=== PATIENT | male | born 1955 | race Caucasian/White ===

== ENCOUNTER 2018-09-06 00:24 | Emergency (ER) | payer BC, MEDICARE, SELFPAY ==
[2018-09-06] MEDS ORDERED: Lisinopril 20 MG TAB PO SCH (01:15)
[2018-09-06] MEDS ORDERED: cloNIDine 0.1 MG TAB ONE (01:21)
== END 2018-09-06 01:24 ==
LOC: ERS 00:24
DX: I10 Essential (primary) hypertension (principal); E11.9 Type 2 diabetes mellitus without complications
CPT/HCPCS: 99283

== ENCOUNTER 2018-09-09 15:39 | Inpatient (IN) | payer OTHER, SELFPAY ==
[2018-09-09 16:06] LABS: #Basophils 0.1 thou/uL (0.0-0.2); #Eosinphils 0.2 thou/uL (0.0-0.7); #Lymphocytes 2.6 thou/uL (1.20-3.40); #Monocytes 1.1 thou/uL (0.11-0.59); #Neutrophils 5.4 thou/uL (1.40-6.50); %Basophils 1.1 % (0.0-1.0); %Eosinophils 1.8 % (0.0-10.0); %Lymphocytes 27.8 % (21.0-51.0); %Monocytes 11.8 % (0.0-10.0); %Neutrophils 57.5 % (42.0-75.0); Hemoglobin 17.5 g/dL (14.0-18.0); Mean Corpuscular HGB CONC 33.1 g/dL (32.0-36.0); Mean Corpuscular Hemoglobin 29.5 pg (27.0-31.0); Mean Corpuscular Volume 89.2 fL (78.0-98.0); Mean Platelet Volume 8.1 fL (7.4-10.4); Platelet Count 341 thou/uL (130-400); RBC Distribution Width 12.6 % (11.5-14.5); Red Blood Cell (RBC) Count 5.92 mill/uL (4.70-6.10); White Blood Cell (WBC) Count 9.3 thou/uL (4.8-10.8)
[2018-09-09] MEDS ORDERED: niCARdipine 20MG In NaCl 20 MG/200 ML BAG ONE (16:08)
[2018-09-09 16:27] LABS: ALT (SGPT) 51 U/L (8-55); AST (SGOT) 42 U/L (5-34); Albumin 4.6 g/dL (3.4-4.8); Alkaline Phosphatase 95 U/L (40-150); Anion Gap 18 mmol/L (10-20); BUN (Urea Nitrogen) 21 mg/dL (8.4-25.7); Bilirubin, Total 0.7 mg/dL (0.2-1.2); Calc. Creatinine Clearance 0 mL/min (70-130); Carbon Dioxide 25 mmol/L (23-31); Chloride 104 mmol/L (98-107); Estimated GFR-MDRD 67; Globulin 3.1 g/dL (2.4-3.5); Glucose 111 mg/dL (80-115); Protein, Total 7.7 g/dL (5.8-8.1); Sodium 142 mmol/L (136-145)
--- NOTE | 2018-09-09 18:15 | CT ---
CT BRAIN WITHOUT CONTRAST: 09/09/18 HISTORY: Headache. Severe hypertension. FINDINGS: No evidence of infarct, hemorrhage, midline shift, or abnormal extra-axial fluid collections are seen . The ventricular size is normal and the basilar cisterns patent. The bony calvarium is intact. There is mild mucosa disease in the paranasal sinuses. The mastoid air cells are clear. IMPRESSION: No CT evidence of acute intracranial process. POS: [facility]
--- NOTE | 2018-09-09 18:19 | RAD ---
PORTABLE CHEST ONE VIEW: 09/09/18 at 5 p.m. HISTORY: Headache. FINDINGS: No recent exams for comparison. The heart size is borderline. The lungs are expanded without lobar consolidation, pneumothoraces, fra nk pulmonary edema or pleural effusions. The aorta is tortuous. IMPRESSION: No acute process. POS: [facility]
[2018-09-09] MEDS ORDERED: niCARdipine HCl 25 MG in Sodium Chloride 0.9% 250 ML 240 ML IVPB PRN (19:00)
[2018-09-09] MEDS ORDERED: Ondansetron PF 4 MG/2 ML Vial IVP PRN (19:01)
[2018-09-09] MEDS ORDERED: Senokot S 8.6-50 MG TAB PO PRN (19:01)
[2018-09-09] MEDS ORDERED: Guaifenesin DM 100-10/5 ML UDCUP PO PRN (19:01)
[2018-09-09] MEDS ORDERED: Ondansetron ODT 4 MG TAB PO PRN (19:01)
[2018-09-09] MEDS ORDERED: Acetaminophen 650 MG Suppository PR PRN (19:01)
[2018-09-09] MEDS ORDERED: niCARdipine 40MG In NaCl 40 MG/200 ML BAG IVPB SCH (19:01)
[2018-09-09] MEDS ORDERED: Dextrose 50% Abboject 50 ML SYRINGE SLOW IVP PRN (19:05)
[2018-09-09] MEDS ORDERED: HumaLOG 300 UNITS/3 ML VIAL SC PRN ×2 (19:05)
[2018-09-09] MEDS ORDERED: Dextrose 5% in Water 1,000 ML IV PRN (19:05)
[2018-09-09] MEDS: niCARdipine HCl 50 MG in Sodium Chloride 0.9% 250 ML 230 ML IVPB SCH (19:39)
[2018-09-09] MEDS: Famotidine 20 MG TAB PO SCH (21:46)
[2018-09-09] MEDS: Acetaminophen 325 MG TAB PO PRN (23:03)
[2018-09-10 01:04] LABS: CKMB 2.2 ng/mL (0-6.6)
--- NOTE | 2018-09-10 01:52 | HP ---
PRIMARY CARE PHYSICIAN: Malick Rose, currently a resident of the [facility]. CHIEF COMPLAINT: Headache and dizziness. HISTORY OF PRESENT ILLNESS: This is a 63-year-old white male with a known history of severe hypertension, also with possible history of pheochromocytoma and carcinoid syndrome diagnosed back in more than 10 years ago per patient's report at the clinic around [place], but treated only with antihypertensives. He reports that he has chronic pain in his stomach from this, but has not changed for years, but also has had difficult to control blood pressure. He was put in nursing home in the last couple of weeks and ran out of blood pressure medicines. He was seen in the emergency room here 3 days ago, given a dose of clonidine, but I do not see he received any prescriptions at that time. The patient was historically on some carvedilol, uncertain what medicines he has been given in the nursing home since then, though he reports that he thinks he has had some lisinopril. The patient reports some severe pressure in his head, some intermittent headaches and elevated blood pressure, so he was brought into the ER today. In the ER, his blood pressure was found to be systolic 283 along with a bradycardic pulse in the 40s initially. He was given a Cardene drip. His initial EKG did show a complete heart block with a heart rate in the mid to high 40s, but asymptomatic at rest. This did convert to a sinus bradycardia, currently in the 50s with intermittent PVCs and some runs of complete heart block as well. PAST MEDICAL HISTORY: 1. Severe hypertension. 2. Questionable history of carcinoid and pheochromocytoma. 3. History of prostate cancer without any specific treatment. 4. Diabetes, not currently on any medications. PAST SURGICAL HISTORY: 1. Left ankle surgery. 2. Septoplasty. 3. Tonsillectomy. PAST PSYCHIATRIC HISTORY: Negative per patient, accompanying officer says he does have some psychiatric diagnosis, though he does know what they are and that he was previously followed at [facility]. SOCIAL HISTORY: No current tobacco, alcohol, or illicit drug use. ALLERGIES: AMLODIPINE. CURRENT MEDICATIONS: Per the ER note, he was on carvedilol, uncertain dose and lisinopril, uncertain dose. REVIEW OF SYSTEMS: CONSTITUTIONAL: No fevers. No chills. EYES: No double vision or blurred vision. ENT: He has had some runny nose. No sore throat. CARDIOVASCULAR: No chest pain. No palpitations or racing heart. He did have the feeling like he was going to pass out initially on presentation that has resolved. PULMONARY: No coughing, wheezing, or shortness of breath. GASTROINTESTINAL: Chronic periumbilical abdominal pain at baseline. No nausea or vomiting. He does have alternating diarrhea and constipation, though none today. GENITOURINARY: No dysuria or hematuria. MUSCULOSKELETAL: No muscle aches or joint pains. SKIN: No rashes or lesions noted. NEUROLOGIC: No numbness, tingling, or focal weakness. PHYSICAL EXAMINATION: VITAL SIGNS: Blood pressure 153/73, pulse 51, respirations 17, O2 saturation 99 % on room air, temperature 99.2. GENERAL: This is a well developed, obese white male, in no acute distress. HEENT: Pupils equal, round, and reactive to light. Oropharynx clear without lesions, erythema, or exudate. NECK: Supple. No lymphadenopathy. No thyroid nodules or enlargement. HEART: Bradycardic rhythm. No murmurs, rubs, or gallops. LUNGS: Clear to auscultation bilaterally. No wheezes, crackles, or rhonchi. ABDOMEN: Soft, obese, nontender to palpation. Normoactive bowel sounds. No hepatosplenomegaly or other masses. EXTREMITIES: No clubbing, cyanosis, or edema. SKIN: No rashes or other lesions noted. NEUROLOGIC: The patient is able to move all extremities with equal strength and equal reflexes. No facial droop. PSYCHIATRIC: Alert and oriented x3. Normal mood and affect. LABORATORY DATA: CBC within normal limits. Complete metabolic panel is notable only for an AST of 42. The rest was normal. Troponin was negative x1. IMAGING DATA: Chest x-ray; I did review the chest x-ray done in the emergency room along with the radiologist's report. No marked cardiomegaly. No severe congestive changes. No infiltrates. He has some mildly increased pulmonary artery size, though borderline. No acute cardiopulmonary process. CT of the head showed no evidence of acute intracranial process. EKG; I did review the EKG done in the emergency room done initially on presentation, does show a complete heart block with an escape ventricular rhythm at about 49 beats per minute. On reviewing the monitor, right now the patient is in sinus bradycardia with short MA interval. No significant ST changes noted. ASSESSMENT: 1. Hypertensive emergency. Improved with Cardene. We will continue Cardene drip. Put the patient in the ICU. 2. Complete heart block, now resolved. Transcutaneous pacer pads placed in case he needs any sort of pacing. I have also discussed the case with Dr. Grove. He recommended since the patient's blood pressure is actually elevated and the patient is not symptomatic right now that no specific interventions need to be done for this previous heart block, but did recommend given his history of carvedilol use, to try some atropine if his vital signs should decompensate. Otherwise, to call us after morning for the consultation. 3. Questionable history of pheochromocytoma. This might warrant investigation of previous records, though not urgent at this point and likely to be done as an outpatient once controlled his blood pressure. 4. Long-standing hypertension. We will check an echocardiogram. 5. Deep venous thrombosis prophylaxis. We will put the patient on Lovenox. 6. Gastrointestinal prophylaxis. We will put the patient on Pepcid twice a day. 7. Code status. The patient is a full code. 8. Diabetes Mellitus Type 2. Will give low insulin sliding scale and finger- stick blood sugars qAC and . Job ID: [id number] [facility]
[2018-09-10] MEDS: niCARdipine HCl 50 MG in Sodium Chloride 0.9% 250 ML 230 ML IVPB SCH (03:47)
[2018-09-10 04:45] LABS: #Basophils 0.1 thou/uL (0.0-0.2); #Eosinphils 0.3 thou/uL (0.0-0.7); #Lymphocytes 1.9 thou/uL (1.20-3.40); #Monocytes 0.8 thou/uL (0.11-0.59); #Neutrophils 5.5 thou/uL (1.40-6.50); %Basophils 0.7 % (0.0-1.0); %Lymphocytes 22.3 % (21.0-51.0); %Monocytes 9.7 % (0.0-10.0); %Neutrophils 64.2 % (42.0-75.0); Hemoglobin 16.6 g/dL (14.0-18.0); Mean Corpuscular HGB CONC 33.7 g/dL (32.0-36.0); Mean Corpuscular Volume 88.9 fL (78.0-98.0); Mean Platelet Volume 8.4 fL (7.4-10.4); Platelet Count 303 thou/uL (130-400); RBC Distribution Width 12.3 % (11.5-14.5); Red Blood Cell (RBC) Count 5.54 mill/uL (4.70-6.10); White Blood Cell (WBC) Count 8.6 thou/uL (4.8-10.8)
[2018-09-10 05:08] LABS: Anion Gap 14 mmol/L (10-20); BUN (Urea Nitrogen) 21 mg/dL (8.4-25.7); Calc. Creatinine Clearance 0 mL/min (70-130); Calcium 9.3 mg/dL (7.8-10.44); Carbon Dioxide 26 mmol/L (23-31); Chloride 105 mmol/L (98-107); Estimated GFR-MDRD 74; Glucose 117 mg/dL (80-115); Potassium 3.5 mmol/L (3.5-5.1); Sodium 141 mmol/L (136-145)
[2018-09-10] MEDS: Enoxaparin Sodium 40 MG/0.4 ML SYRINGE SC SCH (07:40)
[2018-09-10] MEDS: Famotidine 20 MG TAB PO SCH ×2 (07:40→20:29)
--- NOTE | 2018-09-10 09:12 | CON ---
DATE OF CONSULTATION: 09/10/2018 SERVICE: Pulmonary Medicine. REASON FOR CONSULTATION: ICU patient. HISTORY OF PRESENT ILLNESS: The patient is a 63-year-old white male with past medical history significant for severe hypertension. There is a questionable history of pheochromocytoma and carcinoid syndrome. Either way, these were medically managed through time. He got incarcerated here recently and ultimately was away from some of his blood pressure medications. He started having some chest discomfort, shortness of breath, and pressure of the head. He was brought to the Emergency Department and was discovered to have severely elevated blood pressures. He was placed on a Cardene drip and tucked into the ICU. Overnight, the patient 's blood pressures have been fantastic. He indicates that all of his symptoms have resolved. He denies any current chest pain, headache, nausea, vomiting, or diarrhea. His appetite is good. He was not having any fevers, chills, cough, sputum production, dysuria, or abdominal discomfort. They brought him to the hospital. PAST MEDICAL HISTORY: 1. Hypertension. 2. Pheochromocytoma versus carcinoid versus both, history of. 3. Prostate cancer. 4. Type 2 diabetes mellitus. PAST SURGICAL HISTORY: 1. Left ankle surgery. 2. Septoplasty. 3. Tonsillectomy. SOCIAL HISTORY: Negative for alcohol, tobacco, or illicit drug use currently. FAMILY HISTORY: Noncontributory. ALLERGIES: AMLODIPINE. MEDICATIONS: List of the patient's inpatient medications were reviewed. Multiple updates were made and I have restarted some of his home blood pressure medications. REVIEW OF SYSTEMS: General; head, ears, eyes, nose, and throat; cardiovascular; respiratory; GI; ; musculoskeletal; neurologic; and skin are negative except as mentioned in the HPI. PHYSICAL EXAMINATION: VITAL SIGNS: Afebrile, pulse 45, blood pressure 134/64, respirations 24, and saturation 93% on room air. GENERAL: The patient is awake and alert, in no apparent distress. LUNGS: Excellent air entry without any prolonged expiratory phase or wheezing. HEART: Normal rate, regular. ABDOMEN: Soft, nontender, and nondistended. Bowel sounds are positive. MUSCULOSKELETAL: No cyanosis or clubbing. No pitting in bilateral lower extremities. NEUROLOGIC: Grossly nonfocal. LABORATORY DATA: CBC is unremarkable. Basic metabolic profile is unremarkable with a creatinine that is downtrending to 1.02. Liver function studies are normal. Troponin is gently up-trending to 0.071. IMAGING DATA: 1. CT of the brain demonstrates no acute intracranial abnormality. 2. Chest x-ray demonstrates no acute cardiopulmonary abnormality. ASSESSMENT: 1. Hypertensive emergency, resolved. 2. Elevated troponin secondary to demand. 3. Questionable history of pheochromocytoma and/or carcinoid. DISCUSSION AND PLAN: We will resume some of his home blood pressure medications as we understand them. Cardene drip has been turned off. He can be transitioned to the telemetry unit. We will provide him with p.r.n. hydralazine if needed. Secondary workup for these for pheochromocytoma and/or carcinoid may be indicated once again. This can be followed up in the outpatient setting. 70 minutes have been devoted to this patient in various activities. I personally reviewed all imaging studies and laboratory data noted within this document. For fifty percent of this time, I was interacting with the patient at the bedside or coordinating care with the care team. For the remainder of the time I was immediately available to the patient in the hospital unit. Job ID: [id number] [facility]TDD
[2018-09-10] MEDS: Doxazosin 2 MG TAB PO SCH (11:28)
[2018-09-10] MEDS: Lisinopril/Hydrochlorothiazide 20/25 mg Tablet PO SCH (11:29)
[2018-09-10] MEDS: hydrALAZINE 20 MG/ML VIAL SLOW IVP PRN ×2 (12:28→20:30)
--- NOTE | 2018-09-10 15:56 | CON ---
DATE OF CONSULTATION: HISTORY OF PRESENT ILLNESS: The patient is a 63-year-old gentleman, who presented for evaluation of severe headaches and with a markedly elevated blood pressure and headaches. The patient has a history of pheochromocytoma. The patient has been on cardiac medications for his blood pressure. He presented to the emergency room with severe headaches. He does have a known left bundle branch block. The patient was noted in the emergency room to have intermittent heart block. The patient does report having episodes of syncope. PAST MEDICAL HISTORY: 1. Pheochromocytoma. 2. Hypertension. 3. Prostate carcinoma. 4. Diabetes mellitus. PAST SURGICAL HISTORY: Ankle surgery and tonsillectomy. SOCIAL HISTORY: Nonsmoker. ALLERGIES: AMLODIPINE CAUSES SWELLING, MEDICATIONS: He takes; 1. Coreg 3.125 b.i.d. 2. Prinzide 20/12.5 daily. REVIEW OF SYSTEMS: Ten-point system otherwise unremarkable. PHYSICAL EXAMINATION: GENERAL: This is a well-developed gentleman, in no acute distress with a blood pressure of 146/87. NECK: No jugular venous distention. LUNGS: Clear to auscultation. HEART: Regular rate and rhythm. Normal S1 and S2. ABDOMEN: Distended. EXTREMITIES: Showed trace edema. VASCULAR: Radial pulse 2+. LABORATORY DATA: Sodium 141, potassium 3.5, chloride 105, bicarb 26, BUN 21, creatinine 1.0, and glucose 117. Troponin 0.071. His EKG revealed him to have a left bundle branch block with AV dissociation. IMPRESSION: 1. Hypertensive crisis. 2. AV dissociation. 3. History of syncope. 4. Diabetes mellitus. 5. History of prostate carcinoma. PLAN: This gentleman presents with hypertensive crisis. The patient has AV dissociation with his history of pheochromocytoma. He may be imperative that he will be able to be maintained on beta-carl therapy. From a cardiac standpoint, he will need an electronic pacemaker. We will continue to follow this patient with you through his hospitalization. We will check his echocardiogram. This is a critical care note and the time on this critical care note is 30 minutes. Job ID: [id number] [facility]TDD
--- NOTE | 2018-09-10 17:48 | PDOC.PN ---
- Subjective Encounter Start Date: 09/10/18 Encounter Start Time: 09:40 Pt seen for followup re: hypertensive urgency. Says he feels better. - Objective Resuscitation Status - Order Detail: 09/09/18 18:44 Resuscitation Status Routine Resuscitation Status: FULL: Full Resuscitation Discussed with: Patient ASTRID Reviewed: Yes Vital Signs & Weight: Vital Signs (12 hours) Temp 09/10/18 15:55 98.2 F 09/10/18 11:32 98.2 F 09/10/18 08:00 98.1 F Weight Weight 4.282 oz Most Recent Monitor Data Heart Rate from ECG 61 NIBP 217/71 NIBP BP-Mean 119 Respiration from ECG 27 SpO2 94 I&O: 09/09/18 09/10/18 09/11/18 06:59 06:59 06:59 Intake Total 751 1200 Output Total 1450 1050 Balance -699 150 Result Diagrams: 09/10/18 04:03 09/10/18 04:03 EKG Reviewed by me: Yes (Tele:NSR) Phys Exam - Physical Examination Obese HEENT: moist MMs Neck: supple Respiratory: clear to auscultation bilateral Cardiovascular: RRR Gastrointestinal: soft Neurological: moves all 4 limbs Psychiatric: normal affect Dx/Plan (1) Hypertensive urgency Code(s): I16.0 - HYPERTENSIVE URGENCY Status: Acute Comment: Improved, off of cardene drip (2) Atrioventricular (AV) dissociation Code(s): I45.89 - OTHER SPECIFIED CONDUCTION DISORDERS Status: Acute Comment : appreciate cardiology service input - Plan * . Review of Systems - Review of Systems Respiratory: negative: Cough, Shortness of Breath, SOB with Excertion, Pleuritic Pain, Sputum Cardiovascular: negative: chest pain, palpitations, orthopnea, paroxysmal nocturnal dyspnea, edema, light headedness - Medications/Allergies Allergies/Adverse Reactions: Allergies Allergy/AdvReac Type Severity Reaction Status Date / Time amlodipine [From [facility]] Allergy Verified 09/06/18 01:09 Medications: Current Medications Acetaminophen (Tylenol) 650 mg PO Q4H PRN PRN Reason: Headache/Fever/Mild Pain (1-3) Last Admin: 09/09/18 23:03 Dose: 650 mg Acetaminophen (Tylenol) 650 mg OK Q4H PRN PRN Reason: Headache/Fever/Mild Pain (1-3) Dextrose/Water (Dextrose 50%) 25 gm SLOW IVP PRN PRN PRN Reason: Hypoglycemia Doxazosin Mesylate (Cardura) 2 mg PO DAILY [facility] Last Admin: 09/10/18 11:28 Dose: Not Given Enoxaparin Sodium (Lovenox) 40 mg SC 0900 [facility] Last Admin: 09/10/18 07:40 Dose: 40 mg Famotidine (Pepcid) 20 mg PO BID [facility] Last Admin: 09/10/18 07:40 Dose: 20 mg Glucagon (Glucagon) 1 mg IM PRN PRN PRN Reason: Hypoglycemia Lisinopril/HCTZ (Prinizide 20-25) 1 tab PO DAILY [facility] Last Admin: 09/10/18 11:29 Dose: 1 tab Hydralazine HCl (Apresoline) 20 mg SLOW IVP Q1H PRN PRN Reason: SBP Greater Than 180 Last Admin: 09/10/18 12:28 Dose: 20 mg Dextrose/Water (D5w) 1,000 mls @ 0 mls/hr IV .Q0M PRN PRN Reason: Hypoglycemia Insulin Human Lispro (Humalog) 0 units SC .MILD SLIDING SCALE PRN PRN Reason: Mild Correctional Scale Insulin Human Lispro (Humalog) 0 units SC .BEDTIME SLIDING SC PRN PRN Reason: Bedtime Correctional Scale Ondansetron HCl (Zofran Odt) 4 mg PO Q6H PRN PRN Reason: Nausea/Vomiting Ondansetron HCl (Zofran) 4 mg IVP Q6H PRN PRN Reason: Nausea/Vomiting Senna/Docusate Sodium (Senokot S) 2 tab PO BIDPRN PRN PRN Reason: Constipation
[2018-09-11] MEDS: hydrALAZINE 20 MG/ML VIAL SLOW IVP PRN ×4 (04:13→21:29)
[2018-09-11] MEDS ORDERED: Carvedilol 3.125 MG TAB PO SCH (09:15)
[2018-09-11] MEDS: Famotidine 20 MG TAB PO SCH ×2 (09:39→21:29)
[2018-09-11] MEDS: Enoxaparin Sodium 40 MG/0.4 ML SYRINGE SC SCH (09:41)
[2018-09-11] MEDS: Doxazosin 2 MG TAB PO SCH (09:55)
--- NOTE | 2018-09-11 10:03 | PRG ---
DATE OF SERVICE: 09/11/2018 SERVICE: Pulmonary Medicine. INTERVAL HISTORY: The patient is doing fine from respiratory standpoint. Whenever his blood pressure goes up, he has a little bit of dizziness. Outside of that, he has no fevers, chills, cough, chest pain, shortness of breath, nausea, or vomiting overnight. He has been able to get up around the room. PHYSICAL EXAMINATION: VITAL SIGNS: Afebrile, pulse 50, blood pressure 170/92, respirations 15, and saturation 96% on room air. GENERAL: The patient is awake and alert, in no apparent distress. LUNGS: Excellent air entry with no prolonged expiratory phase or wheezing. HEART: Normal rate. Regular. ABDOMEN: Soft, nontender, and nondistended. Bowel sounds are positive. MUSCULOSKELETAL: No cyanosis or clubbing. No pitting in the bilateral lower extremities. NEUROLOGIC: Grossly nonfocal. IMAGING: Echocardiogram demonstrates normal ejection fraction and mildly dilated left atrium. Left ventricular size is increased. There is diastolic dysfunction present. ASSESSMENT: 1. Hypertensive emergency, resolved. 2. Chronic diastolic heart failure. 3. Elevated troponin secondary to demand. 4. Questionable history of pheochromocytoma and/or carcinoid. DISCUSSION AND PLAN: The patient remains stable for transition out of the ICU to the telemetry unit. When he arrives on the floor, Pulmonary/Critical Care will sign off. We will continue to escalate his p.o. medications through time. If he remains in this location, we will continue to follow. Job ID: [id number]
[2018-09-11] MEDS: Lisinopril/Hydrochlorothiazide 20/25 mg Tablet PO SCH (10:52)
[2018-09-11] MEDS ORDERED: Lisinopril/Hydrochlorothiazide 20/25 mg Tablet PO SCH (12:00)
--- NOTE | 2018-09-11 15:03 | PDOC.PN ---
- Subjective Encounter Start Date: 09/11/18 Encounter Start Time: 10:00 Pt seen for followup re:hypertensive urgency. says he feels better. - Objective Resuscitation Status - Order Detail: 09/09/18 18:44 Resuscitation Status Routine Resuscitation Status: FULL: Full Resuscitation Discussed with: Patient Vital Signs & Weight: Vital Signs (12 hours) BP Pulse Ox 09/11/18 12:17 166/95 H 09/11/18 10:52 154/74 H 09/11/18 07:44 98 09/11/18 04:13 191/68 H Weight Weight 4.282 oz Most Recent Monitor Data Heart Rate from ECG 49 NIBP 166/95 NIBP BP-Mean 118 Respiration from ECG 17 SpO2 95 I&O: 09/10/18 09/11/18 09/12/18 06:59 06:59 06:59 Intake Total 751 1600 480 Output Total 1450 2000 600 Balance -699 -400 -120 Result Diagrams: 09/10/18 04:03 09/10/18 04:03 Additional Labs: Accuchecks 09/11/18 09/10/18 09/09/18 10:58 11:41 20:30 POC Glucose 116 H 111 H 191 H Phys Exam - Physical Examination HEENT: moist MMs Neck: supple Respiratory: clear to auscultation bilateral Cardiovascular: RRR Gastrointestinal: soft Neurological: moves all 4 limbs Psychiatric: normal affect Dx/Plan (1) Hypertensive urgency Code(s): I16.0 - HYPERTENSIVE URGENCY Status: Acute Comment: Improved, off of cardene drip since yesterday, likely transfer to floor (2) Atrioventricular (AV) dissociation Code(s): I45.89 - OTHER SPECIFIED CONDUCTION DISORDERS Status: Acute Comment : cardiology following - Plan * . Review of Systems - Review of Systems Cardiovascular: negative: chest pain, palpitations, orthopnea, paroxysmal nocturnal dyspnea, edema, light headedness Gastrointestinal: negative: Nausea, Vomiting, Abdominal Pain, Diarrhea, Constipation, Melena, Hematochezia - Medications/Allergies Allergies/Adverse Reactions: Allergies Allergy/AdvReac Type Severity Reaction Status Date / Time amlodipine [From [facility]] Allergy Verified 09/06/18 01:09 Medications: Current Medications Acetaminophen (Tylenol) 650 mg PO Q4H PRN PRN Reason: Headache/Fever/Mild Pain (1-3) Last Admin: 09/09/18 23:03 Dose: 650 mg Acetaminophen (Tylenol) 650 mg AR Q4H PRN PRN Reason: Headache/Fever/Mild Pain (1-3) Dextrose/Water (Dextrose 50%) 25 gm SLOW IVP PRN PRN PRN Reason: Hypoglycemia Enoxaparin Sodium (Lovenox) 40 mg SC 0900 [facility] Last Admin: 09/11/18 09:41 Dose: 40 mg Famotidine (Pepcid) 20 mg PO BID [facility] Last Admin: 09/11/18 09:39 Dose: 20 mg Glucagon (Glucagon) 1 mg IM PRN PRN PRN Reason: Hypoglycemia Lisinopril/HCTZ (Prinizide 20-25) 2 tab PO DAILY [facility] Hydralazine HCl (Apresoline) 20 mg SLOW IVP Q1H PRN PRN Reason: SBP Greater Than 180 Last Admin: 09/11/18 04:13 Dose: 20 mg Dextrose/Water (D5w) 1,000 mls @ 0 mls/hr IV .Q0M PRN PRN Reason: Hypoglycemia Insulin Human Lispro (Humalog) 0 units SC .MILD SLIDING SCALE PRN PRN Reason: Mild Correctional Scale Insulin Human Lispro (Humalog) 0 units SC .BEDTIME SLIDING SC PRN PRN Reason: Bedtime Correctional Scale Ondansetron HCl (Zofran Odt) 4 mg PO Q6H PRN PRN Reason: Nausea/Vomiting Ondansetron HCl (Zofran) 4 mg IVP Q6H PRN PRN Reason: Nausea/Vomiting Senna/Docusate Sodium (Senokot S) 2 tab PO BIDPRN PRN PRN Reason: Constipation
[2018-09-11] MEDS: Acetaminophen 325 MG TAB PO PRN ×2 (16:07→21:28)
[2018-09-11] MEDS ORDERED: Carvedilol 6.25 MG TAB PO SCH (17:00)
[2018-09-12] MEDS ORDERED: Sodium Chloride 0.9% 10 ML ONE (08:18)
[2018-09-12] MEDS: Enoxaparin Sodium 40 MG/0.4 ML SYRINGE SC SCH (08:32)
[2018-09-12] MEDS: Lisinopril/Hydrochlorothiazide 20/25 mg Tablet PO SCH (08:32)
[2018-09-12] MEDS: Famotidine 20 MG TAB PO SCH ×2 (08:32→21:10)
[2018-09-12] MEDS: hydrALAZINE 20 MG/ML VIAL SLOW IVP PRN (12:29)
--- NOTE | 2018-09-12 16:34 | PDOC.PN ---
- Subjective Encounter Start Date: 09/12/18 Encounter Start Time: 08:20 Pt seen for followup re: hypertensive urgency. No complaints today. - Objective Resuscitation Status - Order Detail: 09/09/18 18:44 Resuscitation Status Routine Resuscitation Status: FULL: Full Resuscitation Discussed with: Izzy RESENDIZ Reviewed: Yes Vital Signs & Weight: Vital Signs (12 hours) Temp Pulse Resp BP Pulse Ox 09/12/18 16:09 98.2 F 56 L 18 111/55 L 96 09/12/18 13:25 146/60 H 09/12/18 12:29 49 L 09/12/18 12:15 98.1 F 49 L 18 184/72 H 97 09/12/18 08:32 50 L 09/12/18 08:27 98.5 F 50 L 18 167/87 H 98 Weight Weight 4.282 oz Most Recent Monitor Data Heart Rate from ECG 47 NIBP 153/82 NIBP BP-Mean 105 Respiration from ECG 7 SpO2 96 I&O: 09/11/18 09/12/18 09/13/18 06:59 06:59 06:59 Intake Total 1600 880 Output Total 2000 900 Balance -400 -20 Result Diagrams: 09/10/18 04:03 09/10/18 04:03 EKG Reviewed by me: Yes (Tele: 3rd degree AV block) Phys Exam - Physical Examination Constitutional: NAD HEENT: moist MMs Neck: supple Respiratory: clear to auscultation bilateral Cardiovascular: RRR Gastrointestinal: soft Neurological: moves all 4 limbs Psychiatric: normal affect Dx/Plan (1) Hypertensive urgency Code(s): I16.0 - HYPERTENSIVE URGENCY Status: Acute Comment: Improved, on tele floor now (2) Atrioventricular (AV) dissociation Code(s): I45.89 - OTHER SPECIFIED CONDUCTION DISORDERS Status: Acute Comment : pt deciding re: pacemaker - Plan * . Review of Systems - Review of Systems Respiratory: negative: Cough, Shortness of Breath, SOB with Excertion, Pleuritic Pain, Wheezing Cardiovascular: negative: chest pain, palpitations, orthopnea, paroxysmal nocturnal dyspnea, edema, light headedness - Medications/Allergies Allergies/Adverse Reactions: Allergies Allergy/AdvReac Type Severity Reaction Status Date / Time amlodipine [From [facility]] Allergy Verified 09/06/18 01:09 Medications: Current Medications Acetaminophen (Tylenol) 650 mg PO Q4H PRN PRN Reason: Headache/Fever/Mild Pain (1-3) Last Admin: 09/11/18 21:28 Dose: 650 mg Acetaminophen (Tylenol) 650 mg HI Q4H PRN PRN Reason: Headache/Fever/Mild Pain (1-3) Dextrose/Water (Dextrose 50%) 25 gm SLOW IVP PRN PRN PRN Reason: Hypoglycemia Enoxaparin Sodium (Lovenox) 40 mg SC 0900 [facility] Last Admin: 09/12/18 08:32 Dose: 40 mg Famotidine (Pepcid) 20 mg PO BID [facility] Last Admin: 09/12/18 08:32 Dose: 20 mg Glucagon (Glucagon) 1 mg IM PRN PRN PRN Reason: Hypoglycemia Lisinopril/HCTZ (Prinizide 20-25) 2 tab PO DAILY [facility] Last Admin: 09/12/18 08:32 Dose: 2 tab Hydralazine HCl (Apresoline) 20 mg SLOW IVP Q1H PRN PRN Reason: SBP Greater Than 180 Last Admin: 09/12/18 12:29 Dose: 20 mg Dextrose/Water (D5w) 1,000 mls @ 0 mls/hr IV .Q0M PRN PRN Reason: Hypoglycemia Insulin Human Lispro (Humalog) 0 units SC .MILD SLIDING SCALE PRN PRN Reason: Mild Correctional Scale Insulin Human Lispro (Humalog) 0 units SC .BEDTIME SLIDING SC PRN PRN Reason: Bedtime Correctional Scale Ondansetron HCl (Zofran Odt) 4 mg PO Q6H PRN PRN Reason: Nausea/Vomiting Ondansetron HCl (Zofran) 4 mg IVP Q6H PRN PRN Reason: Nausea/Vomiting Senna/Docusate Sodium (Senokot S) 2 tab PO BIDPRN PRN PRN Reason: Constipation
[2018-09-12] MEDS: Acetaminophen 325 MG TAB PO PRN (21:10)
--- NOTE | 2018-09-12 22:10 | CON ---
DATE OF CONSULTATION: 09/12/2018 PROBLEM LIST: I am seeing Mr. 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 His problems are; 1. Persisting third-degree AV block with symptomatic bradycardia. 2. Remote history of pheochromocytoma, on medical management. 3. Preserved LVEF by echocardiogram on 09/10/2018 with 50% to 55% diastolic dysfunction, mild MR and TR, and mildly dilated left atrium. 4. Hypertensive crisis. 5. Incarcerated state. 6. History of diabetes. 7. History of prostate cancer, not on therapy. ALLERGIES: AMLODIPINE. MEDICATIONS: At home included; 1. Tylenol. 2. Dextrose water. 3. Lovenox. 4. Pepcid. 5. Glucagon. 6. Prinzide. 7. Alprazolam. 8. Zofran. 9. Senokot. SUBJECTIVE: Mr. Tinoco is here due to elevated blood pressure, he is a transfer from custodial. It was accompanied with headaches also occasional dizziness and he has significant marked fatigue for a number of months. He denies any passing-out spells. Denies angina. Denies PND, orthopnea, or lower extremity edema. No fever, chills, or cough. REVIEW OF SYSTEMS: Rest of 12-point review of systems is otherwise unremarkable. PAST MEDICAL HISTORY: As above. He has been remotely diagnosed with possible pheochromocytoma. SOCIAL HISTORY: The patient is a nonsmoker. Again, currently incarcerated. FAMILY HISTORY: Not contributory. The patient denies smoking, EtOH, or drug abuse. OBJECTIVE DATA: VITAL SIGNS: Blood pressure is 146/60, heart rate 49, respirations 18, temperature 98.1 degrees Fahrenheit. GENERAL: He is an alert and oriented man, in no apparent distress. NECK: Supple. Jugular veins not distended. CHEST: Coarse without crackles. CARDIAC: Heart sounds are regular to rate and rhythm. No murmur or gallop. ABDOMEN: Benign. Bowel sounds are positive. EXTREMITIES: Lower extremities without edema, clubbing, or cyanosis. DATA BASE: EKG is reviewed revealing sinus rhythm with complete AV block with ventricular escape rhythm in the 40s to 50s. LABORATORY DATA: White count is 8.6, hemoglobin is 16.6, platelet count is 303. Sodium 141, potassium 3.5, BUN is 21, creatinine 1.02. Troponin levels 0.018 and 0.071. The chest x-ray so far reveals no acute process. ASSESSMENT AND PLAN: Mr. Tinoco is a pleasant 63-year-old man with history of possible pheochromocytoma versus carcinoid or both remotely, on medical management only. He has had history of hypertension and was admitted with hypertensive crisis, also noted to be bradycardic with junctional escape rhythm and third-degree atrioventricular block. He has symptoms of bradycardia for a number of months now. He does not pass out, though. We discussed the significance of his findings. He understands the potential risk of worsening bradycardia and cardiovascular collapse as well. I detailed the utility of pacemaker in this condition. Clearly, he may require further beta-carl therapy, has history of pheochromocytoma, which is difficult to administer in the setting of complete atrioventricular block. The pros and cons again were discussed, but at this point, he laments about holding off on any kind of pacing therapy. We will discuss this with Dr. Grove. We will keep him without food tomorrow depending on discussions. History of pheochromocytoma as per Dr. Grove and discussed hypertension management as well. Thank you again for allowing me to participate in the care of this patient. Job ID: [id number]
[2018-09-13] MEDS: hydrALAZINE 20 MG/ML VIAL SLOW IVP PRN ×4 (00:44→23:22)
[2018-09-13] MEDS: Enoxaparin Sodium 40 MG/0.4 ML SYRINGE SC SCH (08:45)
[2018-09-13] MEDS: Lisinopril/Hydrochlorothiazide 20/25 mg Tablet PO SCH (08:45)
[2018-09-13] MEDS: Famotidine 20 MG TAB PO SCH ×2 (08:46→21:03)
[2018-09-13] MEDS ORDERED: hydrALAZINE 25 MG TAB PO PRN (15:26)
--- NOTE | 2018-09-13 16:15 | PDOC.CTH ---
Cardiology Progress Note - Subjective EP PROGRESS NOTE: 09/13/18 follow up for 3rd deg. AVB. recommended permanent pacemaker yesterday. patient continue to refuse this today. He is without cardiac complaints today. - Objective Vital Signs Temp Pulse Resp BP BP Pulse Ox 09/13/18 13:10 65 18 130/58 L 09/13/18 12:06 51 L 206/88 H 09/13/18 11:57 98 F 51 L 18 206/88 H 99 09/13/18 09:25 137/81 09/13/18 08:45 48 L 202/93 H 09/13/18 08:35 99 09/13/18 08:33 98 F 48 L 16 202/93 H 99 Weight 4.282 oz 09/12/18 09/13/18 09/14/18 06:59 06:59 06:59 Intake Total 880 970 Output Total 900 600 Balance -20 370 - Physical Examination General/Neuro: alert & oriented x3, NAD Neck: carotid US brisk, no JVD present Lungs: CTA, unlabored respirations Heart: PMI normal, other: (3rd degree AVB 45-55 BPM) Abdomen: NT/ND, soft - Telemetry Telemetry Rhythm: 3rd degree AVB 45-55 BPM - Labs Result Diagrams: 09/10/18 04:03 09/10/18 04:03 Troponin/CKMB CK-MB (CK-2) 2.2 ng/mL (0-6.6) 09/10/18 00:02 Troponin I 0.071 ng/mL (< 0.028) H 09/10/18 00:02 - Assessment/Plan 1. 3rd degree AV block - mildly symptomatic, BP stable 2. HTN 3. Preserved LVEF EP recommendation continues to be for implant of permanent pacemaker to correct his advanced AV block with correlating symptoms. He continues to refuse. Recommend caution/avoidance of BB or AV node blocking agents with his current rhythm. He understands the potential risks associated with further bradycardia without a PM in place. EP signing off. OK for DC by EP
--- NOTE | 2018-09-13 19:13 | PDOC.PN ---
- Subjective Encounter Start Date: 09/13/18 Encounter Start Time: 14:00 Pt seen for followup re: AV dissociation. Denies chest pain or shortness of breath. - Objective Resuscitation Status - Order Detail: 09/09/18 18:44 Resuscitation Status Routine Resuscitation Status: FULL: Full Resuscitation Discussed with: Patient ASTRID Reviewed: Yes Vital Signs & Weight: Vital Signs (12 hours) Temp Pulse Resp BP BP Pulse Ox 09/13/18 17:14 152/65 H 09/13/18 16:29 185/86 H 09/13/18 16:23 98 F 49 L 18 185/86 H 98 09/13/18 13:10 65 18 130/58 L 09/13/18 12:06 51 L 206/88 H 09/13/18 11:57 98 F 51 L 18 206/88 H 99 09/13/18 09:25 137/81 09/13/18 08:45 48 L 202/93 H 09/13/18 08:35 99 09/13/18 08:33 98 F 48 L 16 202/93 H 99 Weight Weight 4.282 oz Most Recent Monitor Data Heart Rate from ECG 47 NIBP 153/82 NIBP BP-Mean 105 Respiration from ECG 7 SpO2 96 I&O: 09/12/18 09/13/18 09/14/18 06:59 06:59 06:59 Intake Total 183 998 2554 Output Total 900 600 Balance -20 370 1440 Result Diagrams: 09/10/18 04:03 09/10/18 04:03 Additional Labs: Accuchecks 09/11/18 15:57 POC Glucose 110 EKG Reviewed by me: Yes (Runs of 3rd degree AV block) Phys Exam - Physical Examination Constitutional: NAD HEENT: moist MMs Neck: supple Respiratory: clear to auscultation bilateral Cardiovascular: RRR Gastrointestinal: soft Neurological: moves all 4 limbs Psychiatric: normal affect, A&O x 3 Dx/Plan (1) Atrioventricular (AV) dissociation Code(s): I45.89 - OTHER SPECIFIED CONDUCTION DISORDERS Status: Acute Comment : Had a lengthy discussion with pt re: pacemaker. Discussed risks vs benefits of having pacemaker and not having pacemaker. The risks of not having pacemaker include worsening of cardiac status, hypotension and . Pt made an informed decision not to have a pacemaker. (2) Hypertensive urgency Code(s): I16.0 - HYPERTENSIVE URGENCY Status: Acute Comment: Improved, continue Lisinopril/hydrochlothiazide and PRN hydralazine - Plan * . Pt has been medically cleared, will await [facility] eval. Review of Systems - Review of Systems Cardiovascular: negative: chest pain, palpitations, orthopnea, paroxysmal nocturnal dyspnea, edema, light headedness Gastrointestinal: negative: Nausea, Vomiting, Abdominal Pain, Diarrhea, Constipation, Melena, Hematochezia - Medications/Allergies Allergies/Adverse Reactions: Allergies Allergy/AdvReac Type Severity Reaction Status Date / Time amlodipine [From [facility]] Allergy Verified 09/06/18 01:09 Medications: Current Medications Acetaminophen (Tylenol) 650 mg PO Q4H PRN PRN Reason: Headache/Fever/Mild Pain (1-3) Last Admin: 09/12/18 21:10 Dose: 650 mg Acetaminophen (Tylenol) 650 mg [place] Q4H PRN PRN Reason: Headache/Fever/Mild Pain (1-3) Dextrose/Water (Dextrose 50%) 25 gm SLOW IVP PRN PRN PRN Reason: Hypoglycemia Enoxaparin Sodium (Lovenox) 40 mg SC 0900 [facility] Last Admin: 09/13/18 08:45 Dose: 40 mg Famotidine (Pepcid) 20 mg PO BID [facility] Last Admin: 09/13/18 08:46 Dose: 20 mg Glucagon (Glucagon) 1 mg IM PRN PRN PRN Reason: Hypoglycemia Lisinopril/HCTZ (Prinizide 20-25) 2 tab PO DAILY [facility] Last Admin: 09/13/18 08:45 Dose: 2 tab Hydralazine HCl (Apresoline) 20 mg SLOW IVP Q1H PRN PRN Reason: SBP Greater Than 180 Last Admin: 09/13/18 16:29 Dose: 20 mg Hydralazine HCl (Apresoline) 25 mg PO TID PRN PRN Reason: SBP Greater Than 170 Dextrose/Water (D5w) 1,000 mls @ 0 mls/hr IV .Q0M PRN PRN Reason: Hypoglycemia Insulin Human Lispro (Humalog) 0 units SC .MILD SLIDING SCALE PRN PRN Reason: Mild Correctional Scale Insulin Human Lispro (Humalog) 0 units SC .BEDTIME SLIDING SC PRN PRN Reason: Bedtime Correctional Scale Ondansetron HCl (Zofran Odt) 4 mg PO Q6H PRN PRN Reason: Nausea/Vomiting Ondansetron HCl (Zofran) 4 mg IVP Q6H PRN PRN Reason: Nausea/Vomiting Senna/Docusate Sodium (Senokot S) 2 tab PO BIDPRN PRN PRN Reason: Constipation
[2018-09-13] MEDS: Acetaminophen 325 MG TAB PO PRN (21:03)
[2018-09-14] MEDS ORDERED: traMADol HCl 50 MG TAB PO SCH (01:30)
--- NOTE | 2018-09-14 03:18 | DIS ---
DATE OF ADMISSION: 09/09/2018 DATE OF DISCHARGE: 09/13/2018 PRIMARY CARE PROVIDER: Unknown. DISCHARGE DIAGNOSES: 1. Hypertensive emergency. 2. Third-degree AV block. CONDITION OF PATIENT ON THE DAY OF DISCHARGE: Stable. I assessed Mr. Tinoco on the day of discharge. He denies any chest pain or shortness of breath. Vital signs are stable, with a heart rate in the high 40s. S1 and S2 are heard, regular and bradycardic. Lungs are clear to auscultation bilaterally. DISCHARGE MEDICATIONS: Lisinopril/hydrochlorothiazide 20/25 mg tablets, two tablets daily. CONSULTATIONS DURING THIS HOSPITALIZATION: 1. Cardiology, Dr. Grove. 2. Electrophysiology, Dr. Thompson. 3. Pulmonary and Critical Care Medicine, Dr. Wu. HOSPITAL COURSE: Mr. Tinoco is a pleasant 63-year-old gentleman who was admitted to [facility] on 09/09/2018, for hypertensive emergency and third-degree AV block. He was seen by Cardiology and Electrophysiology Services. Blood pressure improved with medications. It is recommended that he not be started on any beta blockers. At the time of admission, he was on carvedilol, which was discontinued. Cardiology and Electrophysiology Services recommended pacemaker placement for complete heart block. The patient refused pacemaker placement. I discussed risks versus benefits of pacemaker placement, including the perioperative risks. Risks of not obtaining a pacemaker were also explained to him including the possibility of worsening symptoms and even . The patient made an informed decision not to have pacemaker placement. He is being discharged back to half-way in a stable condition. 2D echocardiogram done during this hospitalization showed left ventricular ejection fraction of 50% to 55%, mildly dilated left atrium, mildly increased left ventricular size and impaired relaxation compatible with diastolic dysfunction. He had mild mitral regurgitation, and mild tricuspid regurgitation. DISCHARGE DESTINATION: [facility], from where the patient was admitted to the hospital. TOTAL AMOUNT OF TIME SPENT COORDINATING THIS DISCHARGE: 33 minutes. Job ID: [id number]
[2018-09-14] MEDS: hydrALAZINE 20 MG/ML VIAL SLOW IVP PRN ×3 (05:39→23:34)
[2018-09-14] MEDS: Famotidine 20 MG TAB PO SCH ×2 (08:46→20:17)
[2018-09-14] MEDS: Lisinopril/Hydrochlorothiazide 20/25 mg Tablet PO SCH (08:46)
[2018-09-14] MEDS: Acetaminophen 325 MG TAB PO PRN ×2 (08:49→22:06)
[2018-09-14 11:09] LABS: #Eosinphils 0.1 thou/uL (0.0-0.7); #Lymphocytes 1.6 thou/uL (1.20-3.40); #Monocytes 0.8 thou/uL (0.11-0.59); #Neutrophils 5.8 thou/uL (1.40-6.50); %Basophils 0.5 % (0.0-1.0); %Eosinophils 1.2 % (0.0-10.0); %Lymphocytes 19.2 % (21.0-51.0); %Monocytes 9.8 % (0.0-10.0); %Neutrophils 69.3 % (42.0-75.0); Hemoglobin 16.8 g/dL (14.0-18.0); Mean Corpuscular HGB CONC 33.5 g/dL (32.0-36.0); Mean Corpuscular Hemoglobin 30.5 pg (27.0-31.0); Platelet Count 339 thou/uL (130-400); RBC Distribution Width 12.8 % (11.5-14.5); White Blood Cell (WBC) Count 8.4 thou/uL (4.8-10.8)
[2018-09-14 11:25] LABS: Anion Gap 12 mmol/L (10-20); BUN (Urea Nitrogen) 17 mg/dL (8.4-25.7); Calc. Creatinine Clearance 0 mL/min (70-130); Calcium 9.5 mg/dL (7.8-10.44); Carbon Dioxide 29 mmol/L (23-31); Chloride 97 mmol/L (98-107); Estimated GFR-MDRD 54; Glucose 199 mg/dL (80-115); Potassium 3.4 mmol/L (3.5-5.1); Sodium 135 mmol/L (136-145)
[2018-09-14] MEDS: Enoxaparin Sodium 40 MG/0.4 ML SYRINGE SC SCH (11:50)
--- NOTE | 2018-09-14 17:20 | PDOC.PN ---
- Subjective Encounter Start Date: 09/14/18 Encounter Start Time: 17:18 Pt seen for followup re: complete heart block. No new complaints. - Objective Resuscitation Status - Order Detail: 09/09/18 18:44 Resuscitation Status Routine Resuscitation Status: FULL: Full Resuscitation Discussed with: Patient Vital Signs & Weight: Vital Signs (12 hours) Temp Pulse Resp BP BP Pulse Ox 09/14/18 16:02 18 97 09/14/18 15:30 98.4 F 50 L 18 163/70 H 09/14/18 11:13 97.7 F 49 L 18 162/65 H 09/14/18 07:55 97.7 F 48 L 18 165/80 H 97 09/14/18 06:00 45 L 165/70 H 09/14/18 05:39 44 L 188/83 H Weight Weight 4.282 oz Most Recent Monitor Data Heart Rate from ECG 47 NIBP 153/82 NIBP BP-Mean 105 Respiration from ECG 7 SpO2 96 I&O: 09/13/18 09/14/18 09/15/18 06:59 06:59 06:59 Intake Total 970 1690 Output Total 600 Balance 370 1690 Result Diagrams: 09/14/18 10:56 09/14/18 10:56 Phys Exam - Physical Examination Constitutional: NAD HEENT: moist MMs Neck: supple Respiratory: clear to auscultation bilateral Cardiovascular: RRR Gastrointestinal: soft Neurological: moves all 4 limbs Psychiatric: normal affect, A&O x 3 Dx/Plan (1) Atrioventricular (AV) dissociation Code(s): I45.89 - OTHER SPECIFIED CONDUCTION DISORDERS Status: Acute Comment : Pt refused pacemaker again (2) Hypokalemia Code(s): E87.6 - HYPOKALEMIA Status: Acute Comment: replace potassium (3) Hypertensive urgency Code(s): I16.0 - HYPERTENSIVE URGENCY Status: Resolved Comment: on Lisinopril/hydrochlothiazide and PRN hydralazine. Monitor vital signs and titrate antihypertensives as needed - Plan * . Discussed with physician at [facility]. He refused admission there, recommended a psychiatric facility attached to a medical unit in case pt needs medical attention. Review of Systems - Review of Systems Respiratory: negative: Cough, Shortness of Breath, SOB with Excertion, Pleuritic Pain, Wheezing Cardiovascular: negative: chest pain, palpitations, orthopnea, paroxysmal nocturnal dyspnea, edema, light headedness - Medications/Allergies Allergies/Adverse Reactions: Allergies Allergy/AdvReac Type Severity Reaction Status Date / Time amlodipine [From [facility]] Allergy Verified 09/06/18 01:09 Medications: Current Medications Acetaminophen (Tylenol) 650 mg PO Q4H PRN PRN Reason: Headache/Fever/Mild Pain (1-3) Last Admin: 09/14/18 08:49 Dose: 650 mg Acetaminophen (Tylenol) 650 mg [place] Q4H PRN PRN Reason: Headache/Fever/Mild Pain (1-3) Dextrose/Water (Dextrose 50%) 25 gm SLOW IVP PRN PRN PRN Reason: Hypoglycemia Enoxaparin Sodium (Lovenox) 40 mg SC 0900 [facility] Last Admin: 09/14/18 11:50 Dose: 40 mg Famotidine (Pepcid) 20 mg PO BID [facility] Last Admin: 09/14/18 08:46 Dose: 20 mg Glucagon (Glucagon) 1 mg IM PRN PRN PRN Reason: Hypoglycemia Lisinopril/HCTZ (Prinizide 20-25) 2 tab PO DAILY [facility] Last Admin: 09/14/18 08:46 Dose: 2 tab Hydralazine HCl (Apresoline) 20 mg SLOW IVP Q1H PRN PRN Reason: SBP Greater Than 180 Last Admin: 09/14/18 05:39 Dose: 20 mg Hydralazine HCl (Apresoline) 25 mg PO TID PRN PRN Reason: SBP Greater Than 170 Dextrose/Water (D5w) 1,000 mls @ 0 mls/hr IV .Q0M PRN PRN Reason: Hypoglycemia Insulin Human Lispro (Humalog) 0 units SC .MILD SLIDING SCALE PRN PRN Reason: Mild Correctional Scale Insulin Human Lispro (Humalog) 0 units SC .BEDTIME SLIDING SC PRN PRN Reason: Bedtime Correctional Scale Ondansetron HCl (Zofran Odt) 4 mg PO Q6H PRN PRN Reason: Nausea/Vomiting Ondansetron HCl (Zofran) 4 mg IVP Q6H PRN PRN Reason: Nausea/Vomiting Senna/Docusate Sodium (Senokot S) 2 tab PO BIDPRN PRN PRN Reason: Constipation
[2018-09-14] MEDS ORDERED: Potassium Chloride 20 MEQ TAB PO SCH (17:30)
[2018-09-15] MEDS: hydrALAZINE 20 MG/ML VIAL SLOW IVP PRN (03:45)
[2018-09-15] MEDS: Enoxaparin Sodium 40 MG/0.4 ML SYRINGE SC SCH (09:35)
[2018-09-15] MEDS: Lisinopril/Hydrochlorothiazide 20/25 mg Tablet PO SCH (09:35)
[2018-09-15] MEDS: Acetaminophen 325 MG TAB PO PRN (09:36)
[2018-09-15] MEDS: Famotidine 20 MG TAB PO SCH ×2 (09:36→20:00)
[2018-09-15] MEDS ORDERED: hydrALAZINE 25 MG TAB PO SCH ×2 (10:15→15:00)
[2018-09-15] MEDS ORDERED: hydrALAZINE 25 MG TAB PO PRN (10:29)
[2018-09-15] MEDS: hydrALAZINE 25 MG TAB PO SCH ×2 (16:10→19:59)
[2018-09-15 16:16] VITALS: TEMP 97.1
[2018-09-15 18:35] LABS: Anion Gap 15 mmol/L (10-20); BUN (Urea Nitrogen) 14 mg/dL (8.4-25.7); Calc. Creatinine Clearance 109 mL/min (70-130); Calcium 9.6 mg/dL (7.8-10.44); Carbon Dioxide 24 mmol/L (23-31); Chloride 98 mmol/L (98-107); Estimated GFR-MDRD 59; Glucose 127 mg/dL (80-115); Potassium 3.5 mmol/L (3.5-5.1); Sodium 133 mmol/L (136-145)
[2018-09-15 20:00] VITALS: BP 192/78
--- NOTE | 2018-09-16 01:37 | DIS ---
DATE OF ADMISSION: 09/09/2018 DATE OF DISCHARGE: 09/15/2018 PRIMARY CARE PROVIDER: Unknown. DISCHARGE DIAGNOSES: 1. Hypertensive emergency. 2. Third-degree atrioventricular block. 3. Acute kidney injury, resolved. Please note that I dictated a discharge summary on Mr. Tinoco on September 13, 2018. He could not be discharged that day because he was waiting for admission to inpatient psychiatry. He has been accepted at [facility] on September 15, 2018 and is being transferred there. CONSULTATIONS DURING THIS HOSPITALIZATION: 1. Cardiology, Dr. Grove. 2. Electrophysiology, Dr. Thompson. 3. Pulmonary and Critical Care Medicine, Dr. Wu. CONDITION OF PATIENT ON THE DAY OF DISCHARGE: Patient on the day of discharge: Stable. I assessed Mr. Tinoco on the day of discharge. He denies any chest pain or shortness of breath. Vital signs are stable. S1 and S2 are heard, regular and bradycardic. Lungs are clear to auscultation bilaterally. HOSPITAL COURSE: As dictated on my discharge summary dated September 13, 2018. Following that, the patient was evaluated by [facility]. They recommended inpatient psychiatric admission. He has been accepted at [facility] and is being discharged there. He also had elevated creatinine of 1.34 on September 14, 2018. It normalized to 1.23 on September 15, 2018. DISCHARGE MEDICATIONS: 1. Hydralazine 25 mg 3 times a day as needed. 2. Lisinopril/hydrochlorothiazide 20/25 mg 2 tablets daily. DISCHARGE DESTINATION: [facility]. TIME SPENT: Total amount of time spent coordinating this discharge: 15 minutes. Job ID: [id number]
== END 2018-09-15 20:20 | disposition home or self-care (01) | DRG 309 ==
LOC: ERS 15:39 → CCU 17:20 → 2NO 09-11 17:14
PROVIDERS: ADMIT Emergency Medicine; ATTEND Emergency Medicine
DX: I44.2 Atrioventricular block, complete (principal); I16.1 Hypertensive emergency; I50.32 Chronic diastolic (congestive) heart failure; I24.8 Other forms of acute ischemic heart disease; N17.9 Acute kidney failure, unspecified; G89.29 Other chronic pain; R10.9 Unspecified abdominal pain; E11.9 Type 2 diabetes mellitus without complications; I11.0 Hypertensive heart disease with heart failure; I08.1 Rheumatic disorders of both mitral and tricuspid valves; E87.6 Hypokalemia; Z53.29 Procedure and treatment not carried out because of patient's decision for other reasons; Z79.899 Other long term (current) drug therapy; Z85.46 Personal history of malignant neoplasm of prostate; Z88.8 Allergy status to other drugs, medicaments and biological substances
CPT/HCPCS: 36415; 36416; 70450; 71045; 80048; 80053; 82553; 84484; 85025; 93005; 93306; 96365; 96366; J0360; J1650; J7050

== ENCOUNTER 2018-11-24 15:40 | Emergency (ER) | payer SELFPAY | END 2018-11-24 16:22 | LOC: ERS 15:40 | DX: I10 Essential (primary) hypertension (principal); I44.7 Left bundle-branch block, unspecified; Z79.899 Other long term (current) drug therapy | CPT/HCPCS: 93005 ==

== ENCOUNTER 2021-06-23 18:46 | Inpatient (IN) | payer BC, MEDICARE, OTHER ==
[2021-06-23] MEDS ORDERED: Nitroglycerin 2% Ointment 1 INCH/1 GM Packet ONE (19:40)
[2021-06-23] MEDS ORDERED: Metoprolol Tartrate 5 MG/5 ML VIAL ONE (19:40)
[2021-06-23 19:59] LABS: #Basophils 0.1 thou/uL (0.0-0.2); #Eosinphils 0.1 thou/uL (0.0-0.7); #Monocytes 0.8 thou/uL (0.11-0.59); %Basophils 1.3 % (0.0-1.0); %Eosinophils 1.7 % (0.0-10.0); %Lymphocytes 28.4 % (21.0-51.0); %Monocytes 10.8 % (0.0-10.0); %Neutrophils 57.9 % (42.0-75.0); Hemoglobin 15.8 g/dL (14.0-18.0); Mean Corpuscular HGB CONC 35.1 g/dL (32.0-36.0); Mean Corpuscular Hemoglobin 31.7 pg (27.0-31.0); Mean Corpuscular Volume 90.4 fL (78.0-98.0); Platelet Count 263 thou/uL (130-400); RBC Distribution Width 12.4 % (11.5-14.5); Red Blood Cell (RBC) Count 4.98 mill/uL (4.70-6.10)
[2021-06-23 20:22] LABS: ALT (SGPT) 20 U/L (8-55); AST (SGOT) 15 U/L (5-34); Albumin 4.4 g/dL (3.4-4.8); Alkaline Phosphatase 63 U/L (40-110); Anion Gap 16 mmol/L (10-20); BUN (Urea Nitrogen) 12 mg/dL (8.4-25.7); Bilirubin, Total 0.6 mg/dL (0.2-1.2); Calc. Creatinine Clearance 0 mL/min (70-130); Carbon Dioxide 25 mmol/L (23-31); Chloride 99 mmol/L (98-107); Globulin 2.6 g/dL (2.4-3.5); Glucose 162 mg/dL (80-115); Potassium 3.3 mmol/L (3.5-5.1); Sodium 137 mmol/L (136-145)
[2021-06-23 21:48] LABS: Amphetamine Not Detected (NotDetected); Barbiturates Screen Not Detected (NotDetected); Benzodiazepine Screen Not Detected (NotDetected); Cocaine Metabolite Screen Not Detected (NotDetected); Methadone Not Detected (NotDetected); Methamphetamine Not Detected (NotDetected); Opiate Screen Not Detected (NotDetected); Oxycodone Screen Not Detected (NotDetected); Phencyclidine (PCP) Not Detected (NotDetected); THC/Cannabinoid Screen Not Detected (NotDetected); Tricyclic Screen Detected (NotDetected)
[2021-06-24] MEDS ORDERED: Acetaminophen 325 MG TAB PO PRN ×2 (00:45→06:59)
[2021-06-24] MEDS ORDERED: Ondansetron PF 4 MG/2 ML Vial IVP PRN ×2 (00:45→06:59)
[2021-06-24] MEDS ORDERED: Ondansetron ODT 4 MG TAB SL PRN (00:45)
[2021-06-24] MEDS ORDERED: hydrALAZINE 20 MG/ML VIAL ONE ×2 (01:39→06:05)
[2021-06-24] MEDS: hydrALAZINE 20 MG/ML VIAL SLOW IVP PRN ×3 (01:44→16:47)
[2021-06-24] MEDS ORDERED: Dextrose 5% in Water 1,000 ML IV PRN (07:08)
[2021-06-24] MEDS ORDERED: Dextrose 50% Abboject 50 ML SYRINGE SLOW IVP PRN (07:08)
[2021-06-24] MEDS ORDERED: HumaLOG 300 UNITS/3 ML VIAL SC PRN (07:08)
[2021-06-24] MEDS ORDERED: Potassium Chloride 20 MEQ TAB PO SCH (07:15)
[2021-06-24 07:24] LABS: #Eosinphils 0.1 thou/uL (0.0-0.7); #Lymphocytes 1.3 thou/uL (1.20-3.40); #Monocytes 0.7 thou/uL (0.11-0.59); #Neutrophils 4.1 thou/uL (1.40-6.50); %Basophils 0.5 % (0.0-1.0); %Eosinophils 1.5 % (0.0-10.0); %Lymphocytes 20.5 % (21.0-51.0); %Monocytes 11.7 % (0.0-10.0); %Neutrophils 65.8 % (42.0-75.0); Mean Corpuscular HGB CONC 33.7 g/dL (32.0-36.0); Mean Corpuscular Hemoglobin 30.9 pg (27.0-31.0); Mean Corpuscular Volume 91.8 fL (78.0-98.0); Mean Platelet Volume 7.1 fL (7.4-10.4); Platelet Count 241 thou/uL (130-400); RBC Distribution Width 12.5 % (11.5-14.5); Red Blood Cell (RBC) Count 4.84 mill/uL (4.70-6.10); White Blood Cell (WBC) Count 6.3 thou/uL (4.8-10.8)
[2021-06-24 07:37] LABS: Anion Gap 14 mmol/L (10-20); BUN (Urea Nitrogen) 12 mg/dL (8.4-25.7); Calc. Creatinine Clearance 0 mL/min (70-130); Calcium 8.8 mg/dL (7.8-10.44); Carbon Dioxide 27 mmol/L (23-31); Chloride 101 mmol/L (98-107); Glucose 104 mg/dL (80-115); Potassium 3.5 mmol/L (3.5-5.1); Sodium 138 mmol/L (136-145)
[2021-06-24 08:29] LABS: Hemoglobin A1c 5.6 % (4.0-6.0)
[2021-06-24 08:43] LABS: Cardiac Risk 5.9 (Less than 4.5)
[2021-06-24] MEDS ORDERED: Enoxaparin Sodium 40 MG/0.4 ML SYRINGE ONE (08:48)
[2021-06-24] MEDS ORDERED: Potassium Chloride 20 MEQ TAB ONE (08:48)
[2021-06-24] MEDS: Enoxaparin Sodium 40 MG/0.4 ML SYRINGE SC SCH (08:57)
[2021-06-24] MEDS ORDERED: Acetaminophen 325 MG TAB ONE (09:06)
[2021-06-24 11:51] LABS: SARS-CoV-2 PCR by NAA Not Detected (NotDetected)
[2021-06-24] MEDS ORDERED: Aspirin 81 mg Enteric Coated Tablet PO SCH (15:00)
[2021-06-24 18:05] VITALS: BMI 39.4
[2021-06-24] MEDS: Labetalol HCl 100 MG TAB PO SCH (22:03)
[2021-06-24] MEDS: Atorvastatin Calcium 40 MG TAB PO SCH (22:03)
[2021-06-24] MEDS: Melatonin 3 MG TAB PO PRN (22:04)
[2021-06-25 06:22] LABS: #Eosinphils 0.1 thou/uL (0.0-0.7); #Lymphocytes 1.6 thou/uL (1.20-3.40); #Monocytes 0.6 thou/uL (0.11-0.59); #Neutrophils 3.9 thou/uL (1.40-6.50); %Basophils 0.5 % (0.0-1.0); %Eosinophils 1.2 % (0.0-10.0); %Lymphocytes 25.3 % (21.0-51.0); %Monocytes 10.1 % (0.0-10.0); %Neutrophils 62.9 % (42.0-75.0); Mean Corpuscular HGB CONC 34.2 g/dL (32.0-36.0); Mean Corpuscular Hemoglobin 31.3 pg (27.0-31.0); Mean Corpuscular Volume 91.6 fL (78.0-98.0); Mean Platelet Volume 7.1 fL (7.4-10.4); Platelet Count 259 thou/uL (130-400); RBC Distribution Width 12.5 % (11.5-14.5); Red Blood Cell (RBC) Count 4.79 mill/uL (4.70-6.10); White Blood Cell (WBC) Count 6.2 thou/uL (4.8-10.8)
[2021-06-25 06:41] LABS: Anion Gap 12 mmol/L (10-20); BUN (Urea Nitrogen) 13 mg/dL (8.4-25.7); Calc. Creatinine Clearance 125 mL/min (70-130); Calcium 8.6 mg/dL (7.8-10.44); Carbon Dioxide 25 mmol/L (23-31); Chloride 102 mmol/L (98-107); Glucose 110 mg/dL (80-115); Potassium 3.3 mmol/L (3.5-5.1); Sodium 136 mmol/L (136-145)
[2021-06-25] MEDS ORDERED: Potassium Chloride 20 MEQ TAB PO SCH (06:45)
[2021-06-25] MEDS ORDERED: hydrALAZINE 25 MG TAB PO SCH (09:00)
[2021-06-25] MEDS ORDERED: Lisinopril 20 MG TAB PO SCH (09:00)
[2021-06-25] MEDS: Labetalol HCl 100 MG TAB PO SCH ×2 (09:38→19:56)
[2021-06-25] MEDS: Aspirin 81 mg Enteric Coated Tablet PO SCH (09:38)
[2021-06-25] MEDS: Divalproex Sodium DR 500 MG TAB PO SCH (09:39)
[2021-06-25] MEDS: PARoxetine 20 MG TAB PO SCH (09:39)
[2021-06-25] MEDS: Hydrochlorothiazide 25 MG TAB PO SCH (09:39)
[2021-06-25] MEDS: Enoxaparin Sodium 40 MG/0.4 ML SYRINGE SC SCH (09:40)
[2021-06-25] MEDS ORDERED: Lisinopril 10 MG TAB PO SCH (13:15)
[2021-06-25] MEDS: hydrALAZINE 25 MG TAB PO SCH ×2 (14:05→19:56)
[2021-06-25] MEDS: Amitriptyline HCl 25 MG TAB PO SCH (19:55)
[2021-06-25] MEDS: Atorvastatin Calcium 40 MG TAB PO SCH (19:56)
[2021-06-25] MEDS: risperiDONE 1 MG TAB PO SCH (19:57)
[2021-06-25] MEDS: Melatonin 3 MG TAB PO PRN (19:59)
[2021-06-26] MEDS: Aspirin 81 mg Enteric Coated Tablet PO SCH (08:09)
[2021-06-26] MEDS: Hydrochlorothiazide 25 MG TAB PO SCH (08:09)
[2021-06-26] MEDS: Labetalol HCl 100 MG TAB PO SCH ×2 (08:10→19:54)
[2021-06-26] MEDS: Lisinopril 20 MG TAB PO SCH (08:10)
[2021-06-26] MEDS: hydrALAZINE 25 MG TAB PO SCH ×2 (08:10→19:55)
[2021-06-26] MEDS: Divalproex Sodium DR 500 MG TAB PO SCH (08:10)
[2021-06-26] MEDS: PARoxetine 20 MG TAB PO SCH (08:10)
[2021-06-26] MEDS: Enoxaparin Sodium 40 MG/0.4 ML SYRINGE SC SCH (08:11)
[2021-06-26] MEDS ORDERED: Lisinopril 20 MG TAB PO SCH (09:00)
[2021-06-26] MEDS: HumaLOG 300 UNITS/3 ML VIAL SC PRN (11:00)
[2021-06-26] MEDS: Atorvastatin Calcium 40 MG TAB PO SCH (19:55)
[2021-06-26] MEDS: risperiDONE 1 MG TAB PO SCH (19:55)
[2021-06-26] MEDS: Amitriptyline HCl 25 MG TAB PO SCH (19:55)
[2021-06-27 05:56] LABS: Anion Gap 14 mmol/L (10-20); BUN (Urea Nitrogen) 14 mg/dL (8.4-25.7); Calc. Creatinine Clearance 126 mL/min (70-130); Calcium 8.4 mg/dL (7.8-10.44); Carbon Dioxide 25 mmol/L (23-31); Chloride 98 mmol/L (98-107); Glucose 105 mg/dL (80-115); Phosphorus 3.4 mg/dL (2.3-4.7); Potassium 3.1 mmol/L (3.5-5.1); Sodium 134 mmol/L (136-145)
[2021-06-27 06:07] LABS: #Eosinphils 0.2 thou/uL (0.0-0.7); #Lymphocytes 1.5 thou/uL (1.20-3.40); #Monocytes 0.7 thou/uL (0.11-0.59); #Neutrophils 4.5 thou/uL (1.40-6.50); %Basophils 0.3 % (0.0-1.0); %Eosinophils 2.8 % (0.0-10.0); %Monocytes 10.6 % (0.0-10.0); %Neutrophils 65.3 % (42.0-75.0); Hemoglobin 14.6 g/dL (14.0-18.0); Mean Corpuscular HGB CONC 33.6 g/dL (32.0-36.0); Mean Corpuscular Hemoglobin 31.5 pg (27.0-31.0); Mean Corpuscular Volume 93.7 fL (78.0-98.0); Mean Platelet Volume 7.1 fL (7.4-10.4); Platelet Count 230 thou/uL (130-400); RBC Distribution Width 12.3 % (11.5-14.5); Red Blood Cell (RBC) Count 4.64 mill/uL (4.70-6.10); White Blood Cell (WBC) Count 6.9 thou/uL (4.8-10.8)
[2021-06-27] MEDS ORDERED: Potassium Chloride 20 MEQ TAB PO SCH (06:15)
[2021-06-27] MEDS: hydrALAZINE 25 MG TAB PO SCH ×2 (08:23→21:33)
[2021-06-27] MEDS: Labetalol HCl 100 MG TAB PO SCH ×2 (08:23→21:34)
[2021-06-27] MEDS: Hydrochlorothiazide 25 MG TAB PO SCH (08:23)
[2021-06-27] MEDS: Divalproex Sodium DR 500 MG TAB PO SCH (08:23)
[2021-06-27] MEDS: Aspirin 81 mg Enteric Coated Tablet PO SCH (08:23)
[2021-06-27] MEDS: Lisinopril 20 MG TAB PO SCH (08:24)
[2021-06-27] MEDS: PARoxetine 20 MG TAB PO SCH (08:24)
[2021-06-27] MEDS: Enoxaparin Sodium 40 MG/0.4 ML SYRINGE SC SCH (08:24)
[2021-06-27] MEDS: Atorvastatin Calcium 40 MG TAB PO SCH (21:33)
[2021-06-27] MEDS: Amitriptyline HCl 25 MG TAB PO SCH (21:34)
[2021-06-27] MEDS: risperiDONE 1 MG TAB PO SCH (21:34)
[2021-06-28 04:15] LABS: #Eosinphils 0.2 thou/uL (0.0-0.7); #Lymphocytes 1.8 thou/uL (1.20-3.40); #Monocytes 0.8 thou/uL (0.11-0.59); #Neutrophils 4.2 thou/uL (1.40-6.50); %Basophils 0.4 % (0.0-1.0); %Eosinophils 2.7 % (0.0-10.0); %Monocytes 11.8 % (0.0-10.0); %Neutrophils 60.1 % (42.0-75.0); Hemoglobin 14.5 g/dL (14.0-18.0); Mean Corpuscular HGB CONC 34.5 g/dL (32.0-36.0); Mean Corpuscular Hemoglobin 32.3 pg (27.0-31.0); Mean Corpuscular Volume 93.5 fL (78.0-98.0); Mean Platelet Volume 7.3 fL (7.4-10.4); Platelet Count 232 thou/uL (130-400); RBC Distribution Width 12.5 % (11.5-14.5); Red Blood Cell (RBC) Count 4.49 mill/uL (4.70-6.10); White Blood Cell (WBC) Count 7.1 thou/uL (4.8-10.8)
[2021-06-28 04:32] LABS: Anion Gap 10 mmol/L (10-20); BUN (Urea Nitrogen) 17 mg/dL (8.4-25.7); Calc. Creatinine Clearance 108 mL/min (70-130); Calcium 8.4 mg/dL (7.8-10.44); Carbon Dioxide 29 mmol/L (23-31); Chloride 97 mmol/L (98-107); Glucose 135 mg/dL (80-115); Phosphorus 3.5 mg/dL (2.3-4.7); Potassium 3.1 mmol/L (3.5-5.1); Sodium 133 mmol/L (136-145)
[2021-06-28] MEDS: Enoxaparin Sodium 40 MG/0.4 ML SYRINGE SC SCH (09:26)
[2021-06-28] MEDS: Labetalol HCl 100 MG TAB PO SCH ×2 (09:27→20:41)
[2021-06-28] MEDS: PARoxetine 20 MG TAB PO SCH (09:27)
[2021-06-28] MEDS: hydrALAZINE 25 MG TAB PO SCH ×2 (09:28→20:41)
[2021-06-28] MEDS: Aspirin 81 mg Enteric Coated Tablet PO SCH (09:28)
[2021-06-28] MEDS: Lisinopril 20 MG TAB PO SCH (09:28)
[2021-06-28] MEDS: Divalproex Sodium DR 500 MG TAB PO SCH (09:28)
[2021-06-28] MEDS: Hydrochlorothiazide 25 MG TAB PO SCH (09:28)
[2021-06-28] MEDS: HumaLOG 300 UNITS/3 ML VIAL SC PRN (11:25)
[2021-06-28] MEDS ORDERED: Labetalol HCl 100 MG TAB PO SCH ×2 (13:44→14:15)
[2021-06-28] MEDS: Amitriptyline HCl 25 MG TAB PO SCH (20:41)
[2021-06-28] MEDS: Atorvastatin Calcium 40 MG TAB PO SCH (20:42)
[2021-06-28] MEDS: risperiDONE 1 MG TAB PO SCH (20:42)
[2021-06-29 05:41] LABS: #Eosinphils 0.2 thou/uL (0.0-0.7); #Lymphocytes 1.7 thou/uL (1.20-3.40); #Monocytes 0.7 thou/uL (0.11-0.59); #Neutrophils 3.4 thou/uL (1.40-6.50); %Basophils 0.3 % (0.0-1.0); %Eosinophils 2.9 % (0.0-10.0); %Lymphocytes 28.5 % (21.0-51.0); %Monocytes 11.2 % (0.0-10.0); %Neutrophils 57.2 % (42.0-75.0); Hemoglobin 14.2 g/dL (14.0-18.0); Mean Corpuscular HGB CONC 33.1 g/dL (32.0-36.0); Mean Corpuscular Volume 93.7 fL (78.0-98.0); Mean Platelet Volume 7.2 fL (7.4-10.4); Platelet Count 247 thou/uL (130-400); RBC Distribution Width 12.4 % (11.5-14.5); Red Blood Cell (RBC) Count 4.58 mill/uL (4.70-6.10)
[2021-06-29 06:03] LABS: Anion Gap 8 mmol/L (10-20); BUN (Urea Nitrogen) 12 mg/dL (8.4-25.7); Calc. Creatinine Clearance 133 mL/min (70-130); Calcium 8.5 mg/dL (7.8-10.44); Carbon Dioxide 31 mmol/L (23-31); Chloride 98 mmol/L (98-107); Glucose 99 mg/dL (80-115); Magnesium 2.1 mg/dL (1.6-2.6); Phosphorus 3.4 mg/dL (2.3-4.7); Potassium 3.1 mmol/L (3.5-5.1); Sodium 134 mmol/L (136-145)
[2021-06-29] MEDS: Enoxaparin Sodium 40 MG/0.4 ML SYRINGE SC SCH (09:18)
[2021-06-29] MEDS: Labetalol HCl 100 MG TAB PO SCH ×2 (09:19→20:24)
[2021-06-29] MEDS: hydrALAZINE 25 MG TAB PO SCH ×2 (09:19→20:25)
[2021-06-29] MEDS: Hydrochlorothiazide 25 MG TAB PO SCH (09:19)
[2021-06-29] MEDS: Aspirin 81 mg Enteric Coated Tablet PO SCH (09:20)
[2021-06-29] MEDS: Divalproex Sodium DR 500 MG TAB PO SCH (09:20)
[2021-06-29] MEDS: Lisinopril 20 MG TAB PO SCH (09:20)
[2021-06-29] MEDS: PARoxetine 20 MG TAB PO SCH (09:20)
[2021-06-29] MEDS: HumaLOG 300 UNITS/3 ML VIAL SC PRN (12:02)
[2021-06-29] MEDS: Amitriptyline HCl 25 MG TAB PO SCH (20:24)
[2021-06-29] MEDS: risperiDONE 1 MG TAB PO SCH (20:25)
[2021-06-29] MEDS: Atorvastatin Calcium 40 MG TAB PO SCH (20:25)
[2021-06-30 05:48] LABS: #Eosinphils 0.1 thou/uL (0.0-0.7); #Lymphocytes 1.6 thou/uL (1.20-3.40); #Monocytes 0.7 thou/uL (0.11-0.59); #Neutrophils 3.5 thou/uL (1.40-6.50); %Basophils 0.8 % (0.0-1.0); %Eosinophils 2.3 % (0.0-10.0); %Lymphocytes 26.7 % (21.0-51.0); %Monocytes 11.2 % (0.0-10.0); Hemoglobin 14.4 g/dL (14.0-18.0); Mean Corpuscular HGB CONC 33.6 g/dL (32.0-36.0); Mean Corpuscular Hemoglobin 31.8 pg (27.0-31.0); Mean Corpuscular Volume 94.6 fL (78.0-98.0); Mean Platelet Volume 6.9 fL (7.4-10.4); Platelet Count 238 thou/uL (130-400); RBC Distribution Width 12.4 % (11.5-14.5); Red Blood Cell (RBC) Count 4.54 mill/uL (4.70-6.10); White Blood Cell (WBC) Count 5.9 thou/uL (4.8-10.8)
[2021-06-30 06:08] LABS: Anion Gap 14 mmol/L (10-20); BUN (Urea Nitrogen) 12 mg/dL (8.4-25.7); Calc. Creatinine Clearance 135 mL/min (70-130); Calcium 8.6 mg/dL (7.8-10.44); Carbon Dioxide 24 mmol/L (23-31); Chloride 98 mmol/L (98-107); Glucose 97 mg/dL (80-115); Phosphorus 3.3 mg/dL (2.3-4.7); Potassium 3.1 mmol/L (3.5-5.1); Sodium 133 mmol/L (136-145)
[2021-06-30] MEDS: Enoxaparin Sodium 40 MG/0.4 ML SYRINGE SC SCH (08:23)
[2021-06-30] MEDS: Aspirin 81 mg Enteric Coated Tablet PO SCH (08:23)
[2021-06-30] MEDS: Lisinopril 20 MG TAB PO SCH (08:24)
[2021-06-30] MEDS: Hydrochlorothiazide 25 MG TAB PO SCH (08:24)
[2021-06-30] MEDS: hydrALAZINE 25 MG TAB PO SCH ×2 (08:26→20:29)
[2021-06-30] MEDS: Potassium Chloride 20 MEQ TAB PO SCH ×2 (08:26→16:34)
[2021-06-30] MEDS: Divalproex Sodium DR 500 MG TAB PO SCH (08:27)
[2021-06-30] MEDS: PARoxetine 20 MG TAB PO SCH (08:27)
[2021-06-30] MEDS ORDERED: Labetalol HCl 100 MG TAB PO SCH (09:00)
[2021-06-30] MEDS: risperiDONE 1 MG TAB PO SCH (20:29)
[2021-06-30] MEDS: Amitriptyline HCl 25 MG TAB PO SCH (20:29)
[2021-06-30] MEDS: Atorvastatin Calcium 40 MG TAB PO SCH (20:29)
[2021-06-30] MEDS: Labetalol HCl 100 MG TAB PO SCH (20:30)
[2021-06-30 20:33] LABS: SARS-CoV-2 PCR by NAA Not Detected (NotDetected)
[2021-07-01 05:44] LABS: #Eosinphils 0.1 thou/uL (0.0-0.7); #Lymphocytes 1.6 thou/uL (1.20-3.40); #Monocytes 0.7 thou/uL (0.11-0.59); #Neutrophils 3.7 thou/uL (1.40-6.50); %Basophils 0.8 % (0.0-1.0); %Eosinophils 2.2 % (0.0-10.0); %Lymphocytes 26.1 % (21.0-51.0); %Monocytes 10.9 % (0.0-10.0); %Neutrophils 59.9 % (42.0-75.0); Hemoglobin 14.3 g/dL (14.0-18.0); Mean Corpuscular HGB CONC 33.5 g/dL (32.0-36.0); Mean Corpuscular Hemoglobin 31.6 pg (27.0-31.0); Mean Corpuscular Volume 94.4 fL (78.0-98.0); Mean Platelet Volume 7.1 fL (7.4-10.4); Platelet Count 238 thou/uL (130-400); RBC Distribution Width 12.5 % (11.5-14.5); Red Blood Cell (RBC) Count 4.52 mill/uL (4.70-6.10); White Blood Cell (WBC) Count 6.1 thou/uL (4.8-10.8)
[2021-07-01 06:00] LABS: Anion Gap 7 mmol/L (10-20); BUN (Urea Nitrogen) 12 mg/dL (8.4-25.7); Calc. Creatinine Clearance 122 mL/min (70-130); Calcium 8.6 mg/dL (7.8-10.44); Carbon Dioxide 31 mmol/L (23-31); Chloride 101 mmol/L (98-107); Glucose 105 mg/dL (80-115); Phosphorus 3.1 mg/dL (2.3-4.7); Potassium 3.5 mmol/L (3.5-5.1); Sodium 135 mmol/L (136-145)
[2021-07-01] MEDS: Enoxaparin Sodium 40 MG/0.4 ML SYRINGE SC SCH (08:42)
[2021-07-01] MEDS: hydrALAZINE 25 MG TAB PO SCH ×2 (08:45→20:21)
[2021-07-01] MEDS: Aspirin 81 mg Enteric Coated Tablet PO SCH (08:46)
[2021-07-01] MEDS: Lisinopril 20 MG TAB PO SCH (08:46)
[2021-07-01] MEDS: PARoxetine 20 MG TAB PO SCH (08:47)
[2021-07-01] MEDS: Hydrochlorothiazide 25 MG TAB PO SCH (08:47)
[2021-07-01] MEDS: Divalproex Sodium DR 500 MG TAB PO SCH (08:47)
[2021-07-01] MEDS: Labetalol HCl 100 MG TAB PO SCH ×2 (11:52→20:20)
[2021-07-01] MEDS: risperiDONE 1 MG TAB PO SCH (20:20)
[2021-07-01] MEDS: Amitriptyline HCl 25 MG TAB PO SCH (20:20)
[2021-07-01] MEDS: Atorvastatin Calcium 40 MG TAB PO SCH (20:20)
[2021-07-02] MEDS: Hydrochlorothiazide 25 MG TAB PO SCH (08:49)
[2021-07-02] MEDS: Aspirin 81 mg Enteric Coated Tablet PO SCH (08:49)
[2021-07-02] MEDS: hydrALAZINE 25 MG TAB PO SCH ×2 (08:49→20:32)
[2021-07-02] MEDS: PARoxetine 20 MG TAB PO SCH (08:50)
[2021-07-02] MEDS: Labetalol HCl 100 MG TAB PO SCH ×3 (08:50→20:32)
[2021-07-02] MEDS: Divalproex Sodium DR 500 MG TAB PO SCH (08:51)
[2021-07-02] MEDS: Enoxaparin Sodium 40 MG/0.4 ML SYRINGE SC SCH (08:51)
[2021-07-02] MEDS: Lisinopril 20 MG TAB PO SCH (08:51)
[2021-07-02] MEDS: Atorvastatin Calcium 40 MG TAB PO SCH (20:31)
[2021-07-02] MEDS: Amitriptyline HCl 25 MG TAB PO SCH (20:32)
[2021-07-03] MEDS ORDERED: Benzocaine (Dental) 7 GM TUBE TOP PRN (07:03)
[2021-07-03] MEDS: Enoxaparin Sodium 40 MG/0.4 ML SYRINGE SC SCH (09:30)
[2021-07-03] MEDS: Lisinopril 20 MG TAB PO SCH (09:31)
[2021-07-03] MEDS: Aspirin 81 mg Enteric Coated Tablet PO SCH (09:31)
[2021-07-03] MEDS: Hydrochlorothiazide 25 MG TAB PO SCH (09:31)
[2021-07-03] MEDS: Labetalol HCl 100 MG TAB PO SCH (09:32)
[2021-07-03] MEDS: Divalproex Sodium DR 500 MG TAB PO SCH (09:32)
[2021-07-03] MEDS: hydrALAZINE 25 MG TAB PO SCH (09:32)
[2021-07-03] MEDS: PARoxetine 20 MG TAB PO SCH (09:36)
[2021-07-03 09:53] LABS: ALT (SGPT) 28 U/L (8-55); AST (SGOT) 18 U/L (5-34); Albumin 4.2 g/dL (3.4-4.8); Alkaline Phosphatase 61 U/L (40-110); Anion Gap 17 mmol/L (10-20); BUN (Urea Nitrogen) 11 mg/dL (8.4-25.7); Bilirubin, Total 0.7 mg/dL (0.2-1.2); Calc. Creatinine Clearance 115 mL/min (70-130); Carbon Dioxide 22 mmol/L (23-31); Chloride 99 mmol/L (98-107); Globulin 2.5 g/dL (2.4-3.5); Glucose 145 mg/dL (80-115); Magnesium 2.1 mg/dL (1.6-2.6); Phosphorus 3.3 mg/dL (2.3-4.7); Potassium 3.7 mmol/L (3.5-5.1); Protein, Total 6.7 g/dL (5.8-8.1); Sodium 134 mmol/L (136-145)
[2021-07-03 11:51] VITALS: BP 140/91; TEMP 98.2
[2021-07-05 12:09] LABS: 5 HIAA,Urine 1.9 mg/L (Undefined); 5 HIAA-24H Urine 6.7 mg/24 hr (0.0-14.9)
== END 2021-07-03 13:30 | DRG 65 ==
LOC: ERS 18:46 → ERHOLD 21:12 → EEVIPCON 21:12 → NEURO 06-24 15:19 → OBSVTOIN 06-25 10:49
PROVIDERS: ADMIT Internal Medicine; ATTEND Family Medicine
DX: I63.9 Cerebral infarction, unspecified (principal); I44.2 Atrioventricular block, complete; I16.1 Hypertensive emergency; E34.0 Carcinoid syndrome; Z20.822 Contact with and (suspected) exposure to COVID-19; I10 Essential (primary) hypertension; E11.9 Type 2 diabetes mellitus without complications; I15.9 Secondary hypertension, unspecified; H49.03 Third [oculomotor] nerve palsy, bilateral; E66.9 Obesity, unspecified; D35.00 Benign neoplasm of unspecified adrenal gland; R29.810 Facial weakness; E78.5 Hyperlipidemia, unspecified; R29.700 NIHSS score 0; I16.0 Hypertensive urgency; F43.10 Post-traumatic stress disorder, unspecified; F41.9 Anxiety disorder, unspecified; K21.9 Gastro-esophageal reflux disease without esophagitis; Z95.0 Presence of cardiac pacemaker; Z79.899 Other long term (current) drug therapy; Z79.82 Long term (current) use of aspirin; Z88.8 Allergy status to other drugs, medicaments and biological substances; Z85.46 Personal history of malignant neoplasm of prostate; Z68.39 Body mass index [BMI] 39.0-39.9, adult; Z90.89 Acquired absence of other organs; Z82.3 Family history of stroke
CPT/HCPCS: 36415; 36416; 70450; 76770; 80048; 80053; 80061; 80306; 82607; 82746; 83036; 83497; 83735; 83835; 83880; 84100; 84260; 84443; 84484; 85025; 90471; 90732; 93005; 93306; 93880; 93975; 96372; 96374; 96375; G0009; G0378; J0360; J1650; J1815; U0003; U0005

== ENCOUNTER 2023-03-07 00:38 | Inpatient (IN) | payer BC, MEDICARE ==
[2023-03-07 01:12] LABS: #Basophils 0.1 thou/uL (0.0-0.2); #Eosinphils 0.1 thou/uL (0.0-0.7); #Monocytes 0.8 thou/uL (0.11-0.59); #Neutrophils 4.6 thou/uL (1.40-6.50); %Basophils 0.9 % (0.0-1.0); %Lymphocytes 16.1 % (21.0-51.0); %Monocytes 11.6 % (0.0-10.0); %Neutrophils 69.1 % (42.0-75.0); Hematocrit 40.1 % (42.0-52.0); Hemoglobin 13.4 g/dL (14.0-18.0); Mean Corpuscular HGB CONC 33.4 g/dL (32.0-36.0); Mean Corpuscular Hemoglobin 29.8 pg (27.0-31.0); Mean Corpuscular Volume 89.1 fl (78.0-98.0); Mean Platelet Volume 9.4 fL (7.4-10.4); Platelet Count 312 10x3/uL (130-400); RBC Distribution Width 14.2 % (11.5-14.5); White Blood Cell (WBC) Count 6.6 10x3/uL (4.8-10.8)
[2023-03-07 01:39] LABS: Troponin I Less than 0.010 ng/mL (< 0.028)
[2023-03-07 01:45] LABS: ALT (SGPT) 20 U/L (8-55); AST (SGOT) 15 U/L (5-34); Albumin 4.5 g/dL (3.4-4.8); Alkaline Phosphatase 74 U/L (40-110); BUN (Urea Nitrogen) 20 mg/dL (8.4-25.7); Bilirubin, Total 0.4 mg/dL (0.2-1.2); CK (CPK) 133 U/L (30-200); Calc. Creatinine Clearance 0 mL/min (70-130); Calcium 8.9 mg/dL (7.8-10.44); Carbon Dioxide 27 mmol/L (23-31); Estimated GFR 63; Glucose 157 mg/dL (80-115); Protein, Total 6.5 g/dL (5.8-8.1)
[2023-03-07 01:46] LABS: Alcohol Less than 10.0 mg/dL (Less than 10); Lipase 8 U/L (8-78); Salicylate Less than 8.0 mg/dL (15.0-30.0)
[2023-03-07 01:54] LABS: Chloride 102 mmol/L (98-107); Potassium 3.8 mmol/L (3.5-5.1); Sodium 139 mmol/L (136-145)
[2023-03-07 01:57] LABS: Anion Gap 16 mmol/L (10-20)
[2023-03-07 02:31] LABS: SARS-CoV-2 NAA Rapid Test Not Detected (NotDetected)
[2023-03-07] MEDS ORDERED: Aspirin 325 MG TAB ONE (02:31)
[2023-03-07 02:33] LABS: Acetaminophen Less than 10 mcg/mL (10.0-30.0)
[2023-03-07] MEDS ORDERED: hydrALAZINE 20 MG/ML VIAL SLOW IVP PRN (03:09)
[2023-03-07] MEDS ORDERED: Acetaminophen 325 MG TAB PO PRN (03:09)
[2023-03-07] MEDS ORDERED: Ondansetron PF 4 MG/2 ML Vial IVP PRN (03:09)
[2023-03-07] MEDS ORDERED: Ipratropium/Albuterol 3 ML NEB EZPAP PRN (03:12)
[2023-03-07] MEDS ORDERED: Ipratropium/Albuterol 3 ML NEB ONE (03:26)
[2023-03-07] MEDS ORDERED: Furosemide 40 MG/4 ML VIAL ONE (03:30)
[2023-03-07] MEDS ORDERED: Glucagon 1 MG/ML KIT IM PRN (03:32)
[2023-03-07] MEDS ORDERED: HumaLOG 300 UNITS/3 ML VIAL SC PRN ×2 (03:32)
[2023-03-07] MEDS ORDERED: Dextrose 50% Abboject 50 ML SYRINGE SLOW IVP PRN (03:32)
[2023-03-07] MEDS ORDERED: Dextrose 5% in Water 1,000 ML IV PRN (03:32)
[2023-03-07 03:39] LABS: Actual Bicarbonate (HCO3a) 23.6 mEq/L (22-28); Analyzer IN Cardio ER; Base Excess (BEa) -1.7 mEq/L (-2.0 to +3.0); CO2 Tension 42.4 mmHg (35.0-45.0); Calcium, Ionized (arterial) 1.12 mmol/L (1.12-1.30); Carboxyhemoglobin (COHb) 0.4 gm% (0.0-3.0); Hematocrit-ABG 39 % (42.0-52.0); Hemoglobin (Hb) 13.3 g/dL (14.0-18.0); O2 Tension (PaO2), arterial 103.8 mmHg (> 80.0); Potassium - ABG Lab 3.64 mmol/L (3.70-5.30); pH, Arterial 7.364 (7.35-7.45)
[2023-03-07 03:43] LABS: Puncture Site RR
[2023-03-07 03:59] LABS: Bacteria/HPF None Seen HPF (None Seen); Bilirubin Negative (Negative); Blood, Urine Negative (Negative); CAUTI Indications for Culture Alt mental st,lethar; Clarity Clear (Clear); Glucose, Urine (Dipstick) Normal (Negative); Ketone, Urine Negative (Negative); Leukocyte Negative Leu/uL (Negative); Nitrite Negative (Negative); Protein, Urine (Dipstick) 100 mg/dL (Neg-Trace); Specific Gravity, Urine 1.026 (1.002-1.036); Squamous Epithelial 0-3 HPF (0-3); Urobilinogen Normal mg/dL (Less than 2); WBC/HPF 0-3 HPF (0-3)
[2023-03-07 04:00] LABS: Sperm/HPF 4+ HPF (None Seen)
[2023-03-07 04:01] LABS: Urine Culture Reflex No No
[2023-03-07 04:05] LABS: Amphetamine Not Detected (NotDetected); Barbiturates Screen Not Detected (NotDetected); Benzodiazepine Screen Not Detected (NotDetected); Cocaine Metabolite Screen Not Detected (NotDetected); Methadone Not Detected (NotDetected); Methamphetamine Not Detected (NotDetected); Opiate Screen Not Detected (NotDetected); Oxycodone Screen Not Detected (NotDetected); Phencyclidine (PCP) Not Detected (NotDetected); THC/Cannabinoid Screen Not Detected (NotDetected); Tricyclic Screen Detected (NotDetected)
[2023-03-07] MEDS ORDERED: hydrALAZINE 20 MG/ML VIAL ONE (08:16)
[2023-03-07] MEDS ORDERED: Morphine 2 MG/ML VIAL SLOW IVP SCH (08:30)
[2023-03-07 09:00] LABS: #Monocytes 0.7 thou/uL (0.11-0.59); #Neutrophils 6.2 thou/uL (1.40-6.50); %Basophils 0.3 % (0.0-1.0); %Eosinophils 0.3 % (0.0-10.0); %Lymphocytes 13.4 % (21.0-51.0); %Monocytes 8.3 % (0.0-10.0); %Neutrophils 77.4 % (42.0-75.0); Hematocrit 39.4 % (42.0-52.0); Hemoglobin 13.3 g/dL (14.0-18.0); Mean Corpuscular HGB CONC 33.8 g/dL (32.0-36.0); Mean Corpuscular Hemoglobin 30.3 pg (27.0-31.0); Mean Corpuscular Volume 89.7 fl (78.0-98.0); Mean Platelet Volume 9.2 fL (7.4-10.4); Platelet Count 343 10x3/uL (130-400); RBC Distribution Width 14.4 % (11.5-14.5); Red Blood Cell (RBC) Count 4.39 mill/uL (4.70-6.10)
[2023-03-07] MEDS ORDERED: Aspirin 81 mg Enteric Coated Tablet PO SCH (09:00)
[2023-03-07 09:08] LABS: Hemoglobin A1c 5.7 % (4.0-6.0)
[2023-03-07] MEDS ORDERED: Morphine 2 MG/ML VIAL ONE (09:17)
[2023-03-07] MEDS ORDERED: Aspirin Chewable 81 MG TAB ONE (09:17)
[2023-03-07 09:28] LABS: Anion Gap 15 mmol/L (10-20); BUN (Urea Nitrogen) 17 mg/dL (8.4-25.7); Calc. Creatinine Clearance 93 mL/min (70-130); Calcium 8.4 mg/dL (7.8-10.44); Carbon Dioxide 24 mmol/L (23-31); Cardiac Risk 3.4 (Less than 4.5); Chloride 101 mmol/L (98-107); Cholesterol 110 mg/dl (< 200 Desired); Estimated GFR 67; Glucose 138 mg/dL (80-115); HDL Cholesterol 32 mg/dL (>60 Neg Risk); LDL Cholesterol, Calculated 67 mg/dL; Potassium 3.4 mmol/L (3.5-5.1); Sodium 137 mmol/L (136-145); Triglycerides 56 mg/dL (Less than 150)
[2023-03-07] MEDS ORDERED: Labetalol HCl 100 MG/20 ML VIAL ONE (10:38)
[2023-03-07] MEDS ORDERED: Furosemide 20 MG/2 ML VIAL ONE (14:00)
[2023-03-07] MEDS: Furosemide 20 MG/2 ML VIAL SLOW IVP SCH (14:07)
[2023-03-07] MEDS: Labetalol HCl 100 MG/20 ML VIAL SLOW IVP PRN ×2 (14:54→16:25)
[2023-03-07] MEDS ORDERED: Labetalol HCl 100 MG TAB PO PRN (15:08)
[2023-03-07] MEDS ORDERED: Labetalol HCl 100 MG/20 ML VIAL SLOW IVP PRN (18:33)
[2023-03-07] MEDS: Melatonin 3 MG TAB PO SCH (20:52)
[2023-03-07] MEDS: Atorvastatin Calcium 40 MG TAB PO SCH (20:52)
[2023-03-07] MEDS: risperiDONE 1 MG TAB PO SCH (20:52)
[2023-03-07] MEDS: Labetalol HCl 100 MG TAB PO SCH (20:53)
[2023-03-07] MEDS: Potassium Chloride 20 MEQ TAB PO SCH ×2 (20:53→21:01)
[2023-03-07] MEDS: Amitriptyline HCl 25 MG TAB PO SCH (20:53)
[2023-03-07] MEDS: hydrALAZINE 25 MG TAB PO SCH (20:53)
[2023-03-07] MEDS ORDERED: hydrALAZINE 25 MG TAB PO SCH (21:00)
[2023-03-07] MEDS ORDERED: Potassium Bicarbonate/Cit Ac 20 MEQ TAB PO SCH (21:00)
[2023-03-07] MEDS ORDERED: Atorvastatin Calcium 40 MG TAB PO SCH (21:00)
[2023-03-07] MEDS ORDERED: Labetalol HCl 100 MG TAB PO SCH (21:00)
[2023-03-08] MEDS: Furosemide 20 MG/2 ML VIAL SLOW IVP SCH ×2 (05:06→14:46)
[2023-03-08 05:38] LABS: #Basophils 0.1 thou/uL (0.0-0.2); #Eosinphils 0.2 thou/uL (0.0-0.7); #Monocytes 0.9 thou/uL (0.11-0.59); %Basophils 0.7 % (0.0-1.0); %Eosinophils 2.4 % (0.0-10.0); %Lymphocytes 14.4 % (21.0-51.0); %Monocytes 12.5 % (0.0-10.0); %Neutrophils 69.7 % (42.0-75.0); Hematocrit 40.2 % (42.0-52.0); Hemoglobin 13.5 g/dL (14.0-18.0); Mean Corpuscular HGB CONC 33.6 g/dL (32.0-36.0); Mean Corpuscular Volume 89.3 fl (78.0-98.0); Mean Platelet Volume 9.4 fL (7.4-10.4); Platelet Count 303 10x3/uL (130-400); RBC Distribution Width 14.1 % (11.5-14.5); White Blood Cell (WBC) Count 7.2 10x3/uL (4.8-10.8)
[2023-03-08 06:05] LABS: Anion Gap 14 mmol/L (10-20); BUN (Urea Nitrogen) 17 mg/dL (8.4-25.7); Calc. Creatinine Clearance 125 mL/min (70-130); Calcium 8.8 mg/dL (7.8-10.44); Carbon Dioxide 28 mmol/L (23-31); Chloride 98 mmol/L (98-107); Estimated GFR 78; Glucose 143 mg/dL (80-115); Potassium 3.3 mmol/L (3.5-5.1); Sodium 137 mmol/L (136-145)
[2023-03-08] MEDS ORDERED: Electrolyte Replacement Protocol 1 EACH FS SCH (06:15)
[2023-03-08] MEDS ORDERED: Potassium Chloride 20 MEQ TAB PO SCH (08:00)
[2023-03-08] MEDS ORDERED: Magnesium 2 GM/50 ML(in water) 2 GM in Premix 1 BAG IVPB SCH (08:00)
[2023-03-08] MEDS: Lisinopril 20 MG TAB PO SCH (08:41)
[2023-03-08] MEDS: Divalproex Sodium DR 500 MG TAB PO SCH (08:41)
[2023-03-08] MEDS: Labetalol HCl 100 MG TAB PO SCH ×3 (08:41→21:23)
[2023-03-08] MEDS: PARoxetine 20 MG TAB PO SCH (08:41)
[2023-03-08] MEDS: hydrALAZINE 25 MG TAB PO SCH ×3 (08:42→21:24)
[2023-03-08] MEDS: Hydrochlorothiazide 25 MG TAB PO SCH (08:43)
[2023-03-08] MEDS: Aspirin 81 mg Enteric Coated Tablet PO SCH (08:43)
[2023-03-08] MEDS ORDERED: Lisinopril 20 MG TAB PO SCH (09:00)
[2023-03-08] MEDS: Melatonin 3 MG TAB PO SCH (21:23)
[2023-03-08] MEDS: risperiDONE 1 MG TAB PO SCH (21:23)
[2023-03-08] MEDS: Amitriptyline HCl 25 MG TAB PO SCH (21:24)
[2023-03-08] MEDS: Atorvastatin Calcium 40 MG TAB PO SCH (21:24)
[2023-03-09 04:23] VITALS: TEMP 97.8
[2023-03-09 05:05] LABS: #Basophils 0.1 thou/uL (0.0-0.2); #Eosinphils 0.2 thou/uL (0.0-0.7); #Monocytes 0.8 thou/uL (0.11-0.59); #Neutrophils 3.9 thou/uL (1.40-6.50); %Lymphocytes 17.9 % (21.0-51.0); %Monocytes 13.1 % (0.0-10.0); %Neutrophils 64.8 % (42.0-75.0); Hematocrit 41.5 % (42.0-52.0); Mean Corpuscular HGB CONC 33.7 g/dL (32.0-36.0); Mean Corpuscular Hemoglobin 29.5 pg (27.0-31.0); Mean Corpuscular Volume 87.6 fl (78.0-98.0); Mean Platelet Volume 9.5 fL (7.4-10.4); Platelet Count 300 10x3/uL (130-400); Red Blood Cell (RBC) Count 4.74 mill/uL (4.70-6.10)
[2023-03-09 05:34] LABS: Anion Gap 12 mmol/L (10-20); BUN (Urea Nitrogen) 18 mg/dL (8.4-25.7); Calc. Creatinine Clearance 128 mL/min (70-130); Calcium 8.6 mg/dL (7.8-10.44); Carbon Dioxide 30 mmol/L (23-31); Chloride 96 mmol/L (98-107); Estimated GFR 81; Glucose 122 mg/dL (80-115); Magnesium 2.3 mg/dL (1.6-2.6); Sodium 135 mmol/L (136-145)
[2023-03-09 06:39] VITALS: BMI 35.6
[2023-03-09] MEDS ORDERED: Potassium Bicarbonate/Cit Ac 20 MEQ TAB PO SCH (08:00)
[2023-03-09] MEDS: hydrALAZINE 25 MG TAB PO SCH (08:47)
[2023-03-09] MEDS: Lisinopril 20 MG TAB PO SCH (08:48)
[2023-03-09] MEDS: Labetalol HCl 100 MG TAB PO SCH (08:48)
[2023-03-09] MEDS: Hydrochlorothiazide 25 MG TAB PO SCH (08:48)
[2023-03-09] MEDS: PARoxetine 20 MG TAB PO SCH (08:48)
[2023-03-09] MEDS: Aspirin 81 mg Enteric Coated Tablet PO SCH (08:48)
[2023-03-09] MEDS: Divalproex Sodium DR 500 MG TAB PO SCH (08:48)
[2023-03-09 08:56] VITALS: BP 147/89
[2023-03-10] MEDS ORDERED: FLU VACC QS2023(65UP)/MF59C/PF 60 MCG/0.5 ML SYRINGE IM ONE (09:00)
== END 2023-03-09 13:25 | disposition home or self-care (01) | DRG 92 ==
LOC: ERS 00:38 → ERHOLD 03:09 → 2SE 15:56 → OBSVTOIN 03-08 17:56
PROVIDERS: ADMIT Internal Medicine; ATTEND Hospitalist
PROC: 4A033R1 Measurement of Arterial Saturation, Peripheral, Percutaneous Approach (ICD-10-PCS; principal; 2023-03-07)
DX: R47.81 Slurred speech (principal); I45.89 Other specified conduction disorders; R29.90 Unspecified symptoms and signs involving the nervous system; I10 Essential (primary) hypertension; E11.9 Type 2 diabetes mellitus without complications; K21.9 Gastro-esophageal reflux disease without esophagitis; F41.9 Anxiety disorder, unspecified; F32.A Depression, unspecified; Z20.822 Contact with and (suspected) exposure to COVID-19; F43.10 Post-traumatic stress disorder, unspecified; R06.09 Other forms of dyspnea; I16.0 Hypertensive urgency; E87.6 Hypokalemia; E78.5 Hyperlipidemia, unspecified; D35.00 Benign neoplasm of unspecified adrenal gland; Z79.82 Long term (current) use of aspirin; Z88.8 Allergy status to other drugs, medicaments and biological substances; Z79.899 Other long term (current) drug therapy; Z85.46 Personal history of malignant neoplasm of prostate; Z90.89 Acquired absence of other organs; Z98.890 Other specified postprocedural states; Z95.0 Presence of cardiac pacemaker; Z82.49 Family history of ischemic heart disease and other diseases of the circulatory system; E66.9 Obesity, unspecified; Z68.35 Body mass index [BMI] 35.0-35.9, adult; R47.1 Dysarthria and anarthria; E83.42 Hypomagnesemia
CPT/HCPCS: 36415; 36416; 70450; 71045; 80048; 80053; 80061; 80306; 80307; 81001; 82140; 82550; 82805; 83036; 83690; 83735; 83880; 84484; 85025; 93005; 93306; 93880; 94640; 94760; 96374; 96375; 96376; G0378; J0360; J1940; J2272; J3475; J7620